=== PATIENT | female | born 1930 | race African-American/Black ===

== ENCOUNTER → 2016-07-03 | Outpatient (CLI) | payer OTHER ==
[2015-10-31 00:57] VITALS: BP 131/71
--- NOTE | 2016-07-03 16:06 | CT ---
STUDY: CT HEAD WITHOUT CONTRAST HISTORY: Dementia. COMPARISON: Head CT from February 19, 2013. TECHNIQUE: Multiple axial images of the head were obtained from the skull base to the vertex without administration of IV contrast. Automated exposure control (AEC) was utilized to adjust the MA and/o r kV. Findings: The sulci, cisterns and ventricles are age appropriate. There are a few scattered foci of low attenuation in the periventricular and subcortical white matter of both hemispheres. This is a n onspecific finding which likely represents microangiopathic change in a patient of this age. There is no evidence of acute territorial infarction, hemorrhage, mass, mass effect or midline shift . There are no abnormal extra-axial fluid collections. There is no evidence of acute osseous abnorma lity or significant soft tissue swelling. IMPRESSION: 1. No evidence of acute intracranial abnormality. 2. Mild nonspecific white matter change. 3. If there remains strong clinical concern for acute intracranial abnormality, then an MRI examinat ion should be considered for further evaluation. Reported By:
== END ==
LOC: RAD 14:38
PROVIDERS: ATTEND Internal Medicine
DX: F03.90 Unspecified dementia, unspecified severity, without behavioral disturbance, psychotic disturbance, mood disturbance, and anxiety (principal)
CPT/HCPCS: 70450

== ENCOUNTER 2016-09-28 18:21 | Observation (INO) | payer OTHER ==
[2016-09-28 18:41] VITALS: BMI 28.9
[2016-09-28 18:55] LABS: BASOPHILS % (AUTO) 0.8 % (0.2-1.0); EOSINOPHILS # (AUTO) 0.1 x10^3/uL (0.0-0.2); EOSINOPHILS % (AUTO) 1.8 % (0.9-2.9); HEMATOCRIT 33.5 % (36.0-47.0); LYMPHOCYTES # (AUTO) 1.4 X10^3/uL (1.3-2.9); LYMPHOCYTES % (AUTO) 22.3 % (21.0-51.0); MEAN CORPUSCULAR HEMOGLOBIN 25.7 pg (27.0-34.0); MEAN CORPUSCULAR HGB CONC 32.9 g/dL (33.0-35.0); MEAN PLATELET VOLUME 7.5 fL (7.4-11.0); MONOCYTES # (AUTO) 0.6 x10^3/uL (0.3-0.8); NEUTROPHILS # (AUTO) 4.2 x10^3/uL (2.2-4.8); NEUTROPHILS % (AUTO) 66.1 % (42.0-75.0); PLATELET COUNT 245 X10^3/uL (150.0-450.0); RED CELL DISTRIBUTION WIDTH 15.3 % (11.6-16.5); WHITE BLOOD COUNT 6.3 X10^3/uL (3.6-10.0)
[2016-09-28 19:15] LABS: HYPOCHROMASIA SLIGHT; PLATELET MORPHOLOGY COMMENT NORMAL (NORMAL)
[2016-09-28 19:19] LABS: BLOOD UREA NITROGEN 25 mg/dL (7-18); CARBON DIOXIDE 30.2 mmol/L (21-32); CHLORIDE 101 mmol/L (98-107); COR NA(FOR HYPERGLY) 138 mmol/L (136-145); CREATININE 1.08 mg/dL (0.55-1.02); GLUCOSE 116 mg/dL (65-99); SODIUM 138 mmol/L (136-145); TROPONIN I < 0.02 ng/mL (0-1.5); eGFR BLACK RACES > 60 (>60); eGFR NON BLACK RACES 51 (>60)
[2016-09-28] MEDS ORDERED: PEPCID 20 MG IV PREMIX* 20 MG/50 ML BAG IV ONE ×2 (19:20→19:31)
[2016-09-28 19:23] LABS: ALANINE AMINOTRANSFERASE 19 Units/L (12-78); ALBUMIN 3.3 g/dL (3.4-5.0); ALKALINE PHOSPHATASE 101 Units/L (46-116); ASPARTATE AMINO TRANSFERASE 17 Units/L (15-37); CKMB % 1.2 % (<4); COR CA(FOR HYPOALB) 9.6 mg/dL (8.5-10.1); CREATINE KINASE 109 Units/L (26-192); CREATINE KINASE MB 1.3 ng/mL (0-4.0); MAGNESIUM 1.6 mg/dL (1.7-2.9); TOTAL PROTEIN 7.1 g/dL (6.4-8.2)
[2016-09-28 19:24] LABS: BILIRUBIN,URINE NEGATIVE (NEGATIVE); BLOOD/HEMOGLOBIN,URINE 2+ (NEGATIVE); GLUCOSE, URINE NEGATIVE (NEGATIVE); KETONES,URINE NEGATIVE (NEGATIVE); LEUKOCYTE ESTERASE ,URINE 1+ (NEGATIVE); NITRITES,URINE NEGATIVE (NEGATIVE); PROTEIN,URINE 1+ (NEGATIVE); UROBILINOGEN,URINE NORMAL (NORMAL)
[2016-09-28] MEDS ORDERED: ASPIRIN 81 MG CHEWTAB PO ONE (19:24)
[2016-09-28] MEDS ORDERED: MORPHINE SULFATE INJ 4 MG IVP ONE (19:24)
[2016-09-28] MEDS ORDERED: ZOFRAN INJ 4 MG VIAL IVP ONE (19:24)
[2016-09-28 19:31] LABS: D DIMER 906 ng/mL (0-400)
[2016-09-28] MEDS ORDERED: ZOFRAN INJ 4 MG VIAL ONE (19:31)
[2016-09-28] MEDS ORDERED: ASPIRIN 81 MG CHEWTAB ONE (19:32)
[2016-09-28] MEDS ORDERED: MORPHINE SULFATE INJ 4 MG ONE (19:32)
[2016-09-28 19:37] LABS: APPEARANCE,URINE CLEAR (CLEAR); COLOR,URINE YELLOW (YELLOW)
[2016-09-28 19:48] LABS: RBC,URINE RARE /HPF (NEGATIVE); SQUAMOUS EPITHELIAL CELL,UR RARE /HPF (NEGATIVE)
[2016-09-28 19:49] LABS: AMORPHOUS SEDIMENT,UR TRACE /HPF (NEGATIVE); BACTERIA,URINE NEGATIVE /HPF (NEGATIVE)
--- NOTE | 2016-09-28 20:03 | RAD ---
HISTORY: Chest pain Study: Single view chest. Comparison: None. Findings: The trachea is midline. There is abnormal thickening of the right paratracheal stripe which can be f ollowed up with outpatient chest CT imaging with IV contrast for assurance. The cardiac silhouette i s enlarged with a tortuous thoracic aorta. Chronic lung changes are observed. The lungs are clear w ithout focal infiltrate or effusion. The bony thorax is unremarkable. IMPRESSION: The trachea is midline. There is abnormal thickening of the right paratracheal stripe which can be f ollowed up with outpatient chest CT imaging with IV contrast for assurance. The cardiac silhouette i s enlarged with a tortuous thoracic aorta. Chronic lung changes are observed. The lungs are clear w ithout focal infiltrate or effusion. The bony thorax is unremarkable. Reported By:
[2016-09-28] MEDS: NITROSTAT SL PRN (20:17)
--- NOTE | 2016-09-28 20:24 | DR.CP ---
HPI - Time Seen Time seen: 19:50 - PCP Primary Care Physician: ness - HPI Comment HPI Comment: SUDDEN ONSET OF PRECORDIA CHEST PAIN GOING INTO EPIGASTRIC AREA. ANTACID MEDS DID NOT HELP. HISTORY CAG WITH PREVIOUS MN. TOOK ASPIRIN BEFORE COMING. - Complaint Chief Complaint Doctor Comments: CHEST PAIN. Chief Complaint:: patient stated she was sitting at home reading a news paper when her left chest pain started. Self Treatment fo Chief Complaint: she took a asprin 81 mg at home - Reviewed Nurses Notes Review: Yes - Source History Provided: Patient - Mode of Arrival Mode of Arrival: Ambulatory - Timing Onset of Chief Complaint: 09/28/16 Came on: Suddenly Pain: Present Now - Duration Duration: Constant Duration: Hours - Location Location of Chest Pain: Left, Chest Chest Pain Radiation Location: Abdomen - Context Onset: At rest Cardiac Risk Factors: Family History, HTN, Diabetes, Other ([place] I9N THE PAST) PE Risk Factors: None Prehospital Care: ASA - Quality Quality: Heavy - Severity Severity: Moderate - Modifying Factors Worsens: Nothing Impoves: Nothing - Associated Signs and Symptoms Associated Signs and Symptoms: Shortness of Breath PMH - PMH Past Medical History: Yes Past Medical History: Angina, Anxiety, Arthritis, Diabetes, GERD, Gout, Hypertension, Hyperthyroidism, [place] Past Surgical History: Yes Surgical History: Bowel Resection, 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, 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 - Family History History of Family Medical Conditions: Yes Family Medical History: Diabetes Mellitus, [place], Coronary Artery Disease, Heart Failure, Sudden Cardiac , Hypertension - Social History Does patient currently use any type of tobacco product: No Have you used tobacco products in the last 12 months: No Type of Tobacco Use: None Does any household member use tobacco: No Alcohol Use: None Do you use any recreational Drugs:: No Lives With: Family Lives Where: Home - infectious screening In the last 2 months have you had wt loss of >10#?: NO Have you had fever, night sweats or hemotysis?: No Have you traveled outside the country in the last 6 months?: No Isolation: Standard ROS - Review of Systems Constitutional: Weakness, Fatigue. negative: Chills, Fever Eyes: No Symptoms Reported. negative: Eye Pain, Discharge ENTM: No Symptoms Reported. negative: Ear Pain, Nose Discharge, Nose Congestion , Throat Pain Respiratoy: Short of Breath. negative: Productive Cough, Non-Productive Cough, Wheezing, Hemoptysis Cardiovascular: Chest Pain Gastrointestinal/Abdominal: No Symptoms Reported Genitourinary: negative: Dysuria, Hematuria Neurological: Weakness Musculoskeletal: Muscle Pain Integumentary: No Symptoms Reported Hematologic/Lymphatic: Easy Bruising Endocrine: No Symptoms Reported All Other Systems: Reviewed and Negative PE - Vitals Vitals: Temperature 98.6 F Pulse Rate 64 Respiratory Rate 18 Blood Pressure [Right Arm] 138/77 Blood Pressure 194/86 O2 Sat by Pulse Oximetry 100 - General Limitations: No Limitations General Appearance: Alert - Head Head Exam: Normal Inspection - Eyes Eye exam: Normal Appearance - ENT ENT Exam: Normal Oropharynx, Normal External Ear Exam, TM's Normal Bilaterally - Chest Chest Inspection: Symmetric Chest Wall Rise - Respiratory Respiratory Exam: Respiratory Distress (ON EXERTION.) Respiratory Exam: Bilateral Wheezing, Bilateral Rhonchi, Lower Wheezing, Lower Rhonchi, Lower Decreased Breath Sounds - Cardiovascular Cardiovascular Exam: Regular Rate, Normal Rhythm, Normal Heart Sounds Pulse: Normal, Radial, Femoral Edema: Normal - Abdominal Exam Abdominal Exam: Normal Bowel Sounds, Soft. negative: Tenderness - Extremities Extremities Exam: Edema, Joint Swelling - Back Back Exam: Normal Inspection - Neurologic Neurological Exam: Alert, Oriented X3, CN II-XII Intact, Reflexes Normal. negative: Normal Gait (WALK WITH CANE), Motor Sensory Deficit - Psychiatric Psychiatric Exam: Normal Affect, Normal Mood - Skin Skin Exam: Normal Color MDM - Additional Information Additional Information Obtained From: Family - Differential Diagnosis Differential Diagnosis: Angina, Chest Wall Pain, Costochondritis, Esophageal Reflux/Spasm, Gastritis, Myocardial Infarction, Pericarditis, Pleuritis, Pancreatitis, Pneumonia, Pneumothorax, Pulmonary Embolus Course - Treatment Treatment: SEE ORDERS. - Reevaluation 1st: Improved (PAIN IMPROVE WITH MORPHIN.) - Consultation Consultation Comments: DISCUSS PATIENT WITH DR. GUTIERREZ. HE WILL ADMIT PATIENT. - Education/Counseling Education/Counseling: Patient, Family, Education Educated On: Treatment, Diagnosis ROR - Labs Reviewed Laboratory Results Reviewed?: Yes Result Diagrams: 09/28/16 18:44 09/28/16 18:44 Laboratory: WBC 6.3 X10^3/uL (3.6-10.0) 09/28/16 18:44 RBC 4.30 X10^6/uL (3.5-5.4) 09/28/16 18:44 Hgb 11.0 g/dL (12.0-16.0) L 09/28/16 18:44 Hct 33.5 % (36.0-47.0) L 09/28/16 18:44 MCV 78.0 fL (80.0-100.0) L 09/28/16 18:44 MCH 25.7 pg (27.0-34.0) L 09/28/16 18:44 MCHC 32.9 g/dL (33.0-35.0) L 09/28/16 18:44 RDW 15.3 % (11.6-16.5) 09/28/16 18:44 Plt Count 245 X10^3/uL (150.0-450.0) 09/28/16 18:44 Plt Count Comment Adequate (ADEQUATE) 09/28/16 18:44 MPV 7.5 fL (7.4-11.0) 09/28/16 18:44 Neut % 66.1 % (42.0-75.0) 09/28/16 18:44 Lymph % 22.3 % (21.0-51.0) 09/28/16 18:44 [place] % 9.0 % (0.0-13.0) 09/28/16 18:44 Eos % 1.8 % (0.9-2.9) 09/28/16 18:44 Baso % 0.8 % (0.2-1.0) 09/28/16 18:44 Neut # 4.2 x10^3/uL (2.2-4.8) 09/28/16 18:44 Lymph # 1.4 X10^3/uL (1.3-2.9) 09/28/16 18:44 [place] # 0.6 x10^3/uL (0.3-0.8) 09/28/16 18:44 Eos # 0.1 x10^3/uL (0.0-0.2) 09/28/16 18:44 Baso # 0.0 X10^3/uL (0.0-0.1) 09/28/16 18:44 Absolute Nucleated RBC 0.0 /100WBC 09/28/16 18:44 Plt Morphology Comment Normal (NORMAL) 09/28/16 18:44 RBC Morphology Abnormal (NORMAL) A 09/28/16 18:44 Hypochromasia Slight A 09/28/16 18:44 INR Target Range - 09/28/16 18:44 INR 1.00 (0.8-1.3) 09/28/16 18:44 PTT 26.7 SECONDS (22.9-36.5) 09/28/16 18:44 PTT Comment - 09/28/16 18:44 D-Dimer 906 ng/mL (0-400) H* 09/28/16 18:44 Sodium 138 mmol/L (136-145) 09/28/16 18:44 Corrected Sodium 138 mmol/L (136-145) 09/28/16 18:44 Potassium 3.6 mmol/L (3.5-5.1) 09/28/16 18:44 Chloride 101 mmol/L (98-107) 09/28/16 18:44 Carbon Dioxide 30.2 mmol/L (21-32) 09/28/16 18:44 BUN 25 mg/dL (7-18) H 09/28/16 18:44 Creatinine 1.08 mg/dL (0.55-1.02) H 09/28/16 18:44 Est GFR (MDRD) Af Amer > 60 (>60) 09/28/16 18:44 Est GFR (MDRD) Non-Af 51 (>60) L 09/28/16 18:44 Glucose 116 mg/dL (65-99) H 09/28/16 18:44 Calcium 9.0 mg/dL (8.5-10.1) 09/28/16 18:44 Corrected Calcium 9.6 mg/dL (8.5-10.1) 09/28/16 18:44 Magnesium 1.6 mg/dL (1.7-2.9) L 09/28/16 18:44 Total Bilirubin 0.30 mg/dL (0.2-1.0) 09/28/16 18:44 AST 17 Units/L (15-37) 09/28/16 18:44 ALT 19 Units/L (12-78) 09/28/16 18:44 Alkaline Phosphatase 101 Units/L (46-116) 09/28/16 18:44 Creatine Kinase 92 Units/L (26-192) 09/29/16 00:55 CK-MB (CK-2) 1.1 ng/mL (0-4.0) 09/29/16 00:55 CK/CKMB % Calc 1.2 % (<4) 09/29/16 00:55 Troponin I 0.02 ng/mL (0-1.5) 09/29/16 00:55 Total Protein 7.1 g/dL (6.4-8.2) 09/28/16 18:44 Albumin 3.3 g/dL (3.4-5.0) L 09/28/16 18:44 Globulin 3.8 g/dL (2.5-4.5) 09/28/16 18:44 Albumin/Globulin Ratio 0.9 Ratio (1.1-2.1) L 09/28/16 18:44 Specimen Type Clean catch urine 09/28/16 19:19 Urine Color Yellow (YELLOW) 09/28/16 19:19 Urine Appearance Clear (CLEAR) 09/28/16 19:19 Urine pH 7.0 (5.0 - 8.0) 09/28/16 19:19 Ur Specific [place] 1.005 (1.000-1.030) 09/28/16 19:19 Urine Protein 1+ (NEGATIVE) 09/28/16 19:19 Urine Glucose (UA) Negative (NEGATIVE) 09/28/16 19:19 Urine Ketones Negative (NEGATIVE) 09/28/16 19:19 Urine Occult Blood 2+ (NEGATIVE) 09/28/16 19:19 Urine Nitrite Negative (NEGATIVE) 09/28/16 19:19 Urine Bilirubin Negative (NEGATIVE) 09/28/16 19:19 Urine Urobilinogen Normal (NORMAL) 09/28/16 19:19 Ur Leukocyte Esterase 1+ (NEGATIVE) 09/28/16 19:19 Urine RBC Rare /HPF (NEGATIVE) 09/28/16 19:19 Urine WBC Rare /HPF (NEGATIVE) 09/28/16 19:19 Ur Squamous Epith Cells Rare /HPF (NEGATIVE) 09/28/16 19:19 Amorphous Sediment Trace /HPF (NEGATIVE) 09/28/16 19:19 Urine Bacteria Negative /HPF (NEGATIVE) 09/28/16 19:19 Ur Culture Indicated? No/not indicated 09/28/16 19:19 - XRAY XRAY Interpreted by: Radiologist XRAY Findings: REPORT DISCUSS WITH PATIENTAND FAMILY. - EKG Rhythm: NSR (EKG NOTED.) - Diagnosis Discharge Problem: Elevated d-dimer Chest pain Qualifiers: Chest pain type: precordial pain Qualified Code(s): R07.2 - Precordial pain Hypertension Qualifiers: Hypertension type: essential hypertension Qualified Code(s): I10 - Essential ( primary) hypertension - Discharge Plan Disposition: ADMITTED INPATIENT Condition: Stable - Follow ups/Referrals - Instructions
[2016-09-28] MEDS ORDERED: NIFEDIPINE CAP 10 MG PO ONE (20:50)
[2016-09-28] MEDS ORDERED: NIFEDIPINE CAP 10 MG ONE (21:02)
[2016-09-28] MEDS: NS 1000 ML 1,000 ML IV SCH (21:10)
[2016-09-29 01:31] LABS: CKMB % 1.2 % (<4); CREATINE KINASE MB 1.1 ng/mL (0-4.0); TROPONIN I 0.02 ng/mL (0-1.5)
[2016-09-29 05:06] LABS: BASOPHILS % (AUTO) 0.7 % (0.2-1.0); EOSINOPHILS # (AUTO) 0.2 x10^3/uL (0.0-0.2); EOSINOPHILS % (AUTO) 3.3 % (0.9-2.9); HEMATOCRIT 32.7 % (36.0-47.0); HEMOGLOBIN 10.7 g/dL (12.0-16.0); LYMPHOCYTES # (AUTO) 1.8 X10^3/uL (1.3-2.9); LYMPHOCYTES % (AUTO) 28.3 % (21.0-51.0); MEAN CORPUSCULAR HEMOGLOBIN 25.8 pg (27.0-34.0); MEAN CORPUSCULAR HGB CONC 32.9 g/dL (33.0-35.0); MEAN CORPUSCULAR VOLUME 78.5 fL (80.0-100.0); MEAN PLATELET VOLUME 7.9 fL (7.4-11.0); MONOCYTES # (AUTO) 0.6 x10^3/uL (0.3-0.8); NEUTROPHILS # (AUTO) 3.7 x10^3/uL (2.2-4.8); NEUTROPHILS % (AUTO) 58.7 % (42.0-75.0); PLATELET COUNT 226 X10^3/uL (150.0-450.0); RED BLOOD COUNT 4.16 X10^6/uL (3.5-5.4); RED CELL DISTRIBUTION WIDTH 15.4 % (11.6-16.5); WHITE BLOOD COUNT 6.2 X10^3/uL (3.6-10.0)
[2016-09-29 05:20] LABS: CHOL/HDL RATIO 2.2 (0.0-5.0)
[2016-09-29 05:23] LABS: ALANINE AMINOTRANSFERASE 17 Units/L (12-78); ALBUMIN 3.2 g/dL (3.4-5.0); ALKALINE PHOSPHATASE 85 Units/L (46-116); ASPARTATE AMINO TRANSFERASE 18 Units/L (15-37); BLOOD UREA NITROGEN 20 mg/dL (7-18); CALCIUM 8.6 mg/dL (8.5-10.1); CARBON DIOXIDE 30.3 mmol/L (21-32); CHLORIDE 105 mmol/L (98-107); COR CA(FOR HYPOALB) 9.2 mg/dL (8.5-10.1); COR NA(FOR HYPERGLY) 143 mmol/L (136-145); CREATININE 0.94 mg/dL (0.55-1.02); GLUCOSE 122 mg/dL (65-99); SODIUM 142 mmol/L (136-145); TOTAL PROTEIN 6.7 g/dL (6.4-8.2); eGFR BLACK RACES > 60 (>60); eGFR NON BLACK RACES > 60 (>60)
[2016-09-29 06:08] LABS: HYPOCHROMASIA SLIGHT; PLATELET MORPHOLOGY COMMENT NORMAL (NORMAL)
[2016-09-29] MEDS ORDERED: K-LYTE EFFERVESCENT PO PRN (06:27)
[2016-09-29] MEDS ORDERED: K-RIDER 10 MEQ/NS 100 ML 10 MEQ/100 ML BAG IV PRN (06:27)
[2016-09-29] MEDS ORDERED: K-DUR TAB 20 MEQ PO PRN (06:27)
[2016-09-29] MEDS ORDERED: POTASSIUM CHLORIDE LIQ 20 MEQ UDC PO PRN (06:27)
[2016-09-29 08:11] LABS: CKMB % 1.2 % (<4); CREATINE KINASE 89 Units/L (26-192); CREATINE KINASE MB 1.1 ng/mL (0-4.0); TROPONIN I < 0.02 ng/mL (0-1.5)
--- NOTE | 2016-09-29 11:59 | DR.H&P ---
H&P - History & Physical for Day of: H&P Date: 09/28/16 - Chief Complaint Chief Complaint: CHEST PAIN. - Allergies Allergies/Adverse Reactions: Allergies Allergy/AdvReac Type Severity Reaction Status Date / Time codeine Allergy Verified 09/29/16 03:46 Penicillins Allergy Verified 09/29/16 03:46 shellfish derived Allergy Verified 09/29/16 03:46 - History of Present Illness History of Present Illness: IS AN 86 YEAR OLD PATIENT OF OURS WHO PRESENTED TO THE EMERGENCY ROOM WITH SUDDEN ONSET CHEST. 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 SHE STATES THAT PAIN IS ALSO INTO EPIGASTRIC AREA. PATIENT STATED THAT SHE THOUGHT IT MAY BE ACID, SO SHE TOOK ANTACIDS AND ASPIRIN, BUT DID NOT GET ANY RELIEF. ON ARRIVAL TO ER, VITALS WERE 97.8, 56, 18, 92%, 143/67. LABS, EKG, AND CHEST XRAY WAS OBTAINED. LABS REPORT CBC WNL EXCEPT HGB 11.0, HCT 33.5. CMP WNL EXCEPT BUN 25, CREATININE 1.08. GLUCOSE 116, MAGNESIUM 1.6, ALBUMIN 3.3. CARDIAC PROFILE WNL. D -DIMER 906. CHEST XRAY REPORTED LUNGS CLEAR WITHOUT FOCAL INFILTRATE OR EFFUSION. EKG NORMAL . DUE TO PATIENTS CARDIAC HISTORY, SHE WAS ADMITTED FOR FURTHER TREATMENT AND EVALUATION. A VQ SCAN WAS ORDERED RATHER THAN A CT WITH CONTRAST DUE TO PATIENTS SHELLFISH ALLERGY. WE PLANNED TO RECHECK LABS, CARDIAC PROFILES, AND EKGS AND TO FOLLOW UP WITH PATIENT IN AM. 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 denies: See HPI, Pain, Vision Change, Conjunctivae Inflammation, Eyelid Inflammation, Redness, Other ENT: No Symptoms Reported. denies: See HPI, Ear Pain, Ear Discharge, Nose Pain , Nose Discharge, Nose Congestion, Mouth Pain, Mouth Swelling, Throat Pain, Throat Swelling, Other Respiratory: Shortness of Breath. denies: No Symptoms Reported, See HPI, Cough , Dry, Hemoptysis, SOB with Excertion, Pleuritic Pain, Sputum, Wheezing, Other Cardiovascular: Chest Pain, See HPI. denies: No Symptoms Reported, Palpitations , Orthopnea, Paroxysmal Noc. Dyspnea, Edema, Light Headedness, Other Genitourinary: No Symptoms Reported. denies: See HPI, Dysuria, Frequency, Incontinence, Hematuria, Retention, Other Musculoskeletal: No Symptoms Reported. denies: See HPI, Shoulder Pain, Arm Pain , Back Pain, Hand Pain, Leg Pain, Foot Pain, Neck Pain, Other Skin: No Symptoms Reported. denies: See HPI, Rash, Lesions, Jaundice, Bruising , Wound, Ecchymosis, Other Neurological: No Symptoms Reported. denies: See HPI, Weakness, Numbness, Incoordination, Change in Speech, Confusion, Seizures, Other - Physical Exam Vital Signs: Temperature 97.8 F Pulse Rate [Right Brachial] 56 Respiratory Rate 18 Blood Pressure [Right Arm] 143/67 O2 Sat by Pulse Oximetry 92 Oriented: Normal. negative: Time, Person, Place, Not Oriented, Unable to test, Other Eyes: Normal. negative: Blurred Vision, Diplopia, Discharge, Pain, Redness, Photophobia, Other Ear: Normal. negative: Right, Left, Swelling, Ecchymosis, Hemotypanum, Abrasion , Laceration Nose: Normal. negative: Injected, Discharge, Blood, Other Throat: Normal. negative: Tonsillar Hypertrophy, Red, Exudate, Dry, Other Respiratory: Clear Throughout. negative: Diminished Throughout, Rhonchi Throughout, Rales Throughout, Wheezes Throughout, RUL Clear, RML Clear, RLL Clear, BABITA Clear, LML Clear, LLL Clear, RUL Diminished, RML Diminished, RLL Diminished, BABITA Diminished, LML Diminished, LLL Diminished, RUL Absent, RML Absent, RLL Absent, BABITA Absent, LML Absent, LLL Absent, RUL Rhonchi, RML Rhonchi , RLL Rhonchi, BABITA Rhonchi, LML Rhonchi, LLL Rhonchi, RUL Insp. Wheeze, RML Insp. Wheeze, RLL Insp. Wheeze, BABITA Insp.Wheeze, LML Insp.Wheeze, LLL Insp.Wheeze, RUL Exp. Wheeze, RML Exp. Wheeze, RLL Exp. Wheeze, BABITA Exp. Wheeze , LML Exp. Wheeze, LLL Exp. Wheeze, RUL Rales, RML Rales, RLL Rales, BABITA Rales, LML Rales, LLL Rales, RUL Rub, RML Rub, RLL Rub, BABITA Rub, LML Rub, LLL Rub, RUL Squeak, RML Squeak, RLL Squeak, BABITA Squeak, LML Squeak, LLL Squeak Cardiovascular: Normal. negative: Tachycardia, Bradycardia, Irregular, S3, S4, Systolic, Diastolic, Murmur, Edema, Other : Normal. negative: Dysuria, Hematuria, Frequency, Discharge, Testicular Pain , Bleeding, , Other Auscultation: Bowel Sounds: Normal. negative: Bruit, Absent, Increased, Decreased, High Pitched, Other Palpation: Normal. negative: Spleen Enlarged, Liver Enlarged, Mass Pulsatile, Other Tenderness: Epigastric Skin: Normal. negative: Decreased Turgur, Rash, Papular, Macular, Maculopapular , Vesicular, Pustular, Petechial, Red, Tender, Hot, Diaphoresis, Wound, Bruising , Ecchymosis, Other Musculoskeletal: Normal. negative: Right, Left, Shoulder, Clavicle, Arm, Elbow , Forearm, Wrist, Hand, Hip, Thigh, Knee, Leg, Ankle, Foot, Back:Thoracic, Back: Lumbar, Back:Midline, Back:Paraspinous, Pelvis, Swelling, Tender, Deformity, Pulse Deficit, Motor Deficit, Sensory Deficit, Instability, Crepitance Psychiatric: Normal. negative: Anxiety, Depression, Agitation, Other Mood Description: Calm. negative: Angry, Apathetic, Depressed, Fearful, Flat, Happy, Hostile, Sad, Suspicious, Withdrawn, Anxious, Appropriate, Labile Affect: Normal Speech Pattern: Clear - Assessment/Plan (1) Chest pain Qualifiers: Chest pain type: precordial pain Ischemic chest pain type: I Qualified Code(s): R07.2 - Precordial pain Status: Acute Plan: CHECK CARDIAC PROFILE, EKG, CHEST XRAY, NITROSTAT, CONTINUE TO MONITOR (2) Elevated d-dimer Status: Acute Plan: CHECK VQ SCAN, CONTINUE TO MONITOR
[2016-09-29] MEDS ORDERED: XANAX PO PRN (12:02)
--- NOTE | 2016-09-29 12:06 | PCM.PROG ---
Progress Note - Progress Note for Day of Date: 09/29/16 - Subjective Subjective: WAS ADMITTED LAST NIGHT FOR CHEST PAIN. SHE IS SITTING UP IN BED ON MORNING ROUNDS. FAMILY IS AT BEDSIDE. SHE IS WITH COMPLAINTS OF SHORTNESS OF BREATH BUT DENIES ANY CURRENT CHEST PAIN. LUNGS ARE CLEAR ON AUSCULTATION. BOWEL SOUNDS NORMAL IN ALL QUADRANTS. VITALS THIS AM ARE 97.8, 56 , 18, 92%, 143/67. CBC WNL EXCEPT HGB 10.7, HCT 32.7. CMP WNL EXCEPT POTASSIUM 3.1, BUN 20, CREATININE 0.94, GLUCOSE 122, ALBUMIN 3.2, HDL CHOLESTEROL 84, MAGNESIUM 1.5. CARDIAC PROFILES AND EKG WNL. WE WILL ORDER MAGNESIUM SULFATE 2GM IV X 1, CHECK BILATERAL VENOUS DOPPLER DUE TO ELEVATED D-DIMER, RECHECK LABS , CHECK CHEST XRAY AND FOLLOW UP WITH PATIENT IN AM. - Past Medical Family Social History Past Med/Fam/Surg Hx: No changes since H&P Allergies: Allergies codeine Allergy (Verified 09/29/16 03:46) Penicillins Allergy (Verified 09/29/16 03:46) shellfish derived Allergy (Verified 09/29/16 03:46) - Review of Systems ROS: No change since H&P - Vital Signs and I&O's Vital Signs: Temperature 97.8 F Pulse Rate [Right Brachial] 56 Respiratory Rate 18 Blood Pressure [Right Arm] 143/67 O2 Sat by Pulse Oximetry 92 Intake and Output: Intake & Output 09/27/16 09/28/16 09/29/16 09/30/16 11:59 11:59 11:59 11:59 Intake Total 235 Balance 235 - Physical Exam Oriented: Normal. negative: Time, Person, Place, Not Oriented, Unable to test, Other Eyes: Normal. negative: Blurred Vision, Diplopia, Discharge, Pain, Redness, Photophobia, Other Ear: Normal. negative: Right, Left, Swelling, Ecchymosis, Hemotypanum, Abrasion , Laceration Nose: Normal. negative: Injected, Discharge, Blood, Other Throat: Normal. negative: Tonsillar Hypertrophy, Red, Exudate, Dry, Other Respiratory: Normal Cardiovascular: Normal. negative: Tachycardia, Bradycardia, Irregular, S3, S4, Systolic, Diastolic, Murmur, Edema, Other : Normal. negative: Dysuria, Hematuria, Frequency, Discharge, Testicular Pain , Bleeding, , Other Auscultation: Bowel Sounds: Normal. negative: Bruit, Absent, Increased, Decreased, High Pitched, Other Tenderness: Normal. negative: Diffuse, RUQ, RLQ, LUQ, LLQ, Epigastric, Periumbilical, Suprapubic, Mild, Moderate, Severe, Rebound, Guarding, Rigidity, Other Skin: Normal. negative: Decreased Turgur, Rash, Papular, Macular, Maculopapular , Vesicular, Pustular, Petechial, Red, Tender, Hot, Diaphoresis, Wound, Bruising , Ecchymosis, Other Musculoskeletal: Normal. negative: Right, Left, Shoulder, Clavicle, Arm, Elbow , Forearm, Wrist, Hand, Hip, Thigh, Knee, Leg, Ankle, Foot, Back:Thoracic, Back: Lumbar, Back:Midline, Back:Paraspinous, Pelvis, Swelling, Tender, Deformity, Pulse Deficit, Motor Deficit, Sensory Deficit, Instability, Crepitance Psychiatric: Normal. negative: Anxiety, Depression, Agitation, Other Mood Description: Calm. negative: Angry, Apathetic, Depressed, Fearful, Flat, Happy, Hostile, Sad, Suspicious, Withdrawn, Anxious, Appropriate, Labile Affect: Normal Speech Pattern: Clear - Laboratory and Diagnostics Result Diagrams: 09/29/16 03:25 09/29/16 03:25 Labs: Laboratory WBC 6.2 X10^3/uL (3.6-10.0) 09/29/16 03:25 RBC 4.16 X10^6/uL (3.5-5.4) 09/29/16 03:25 Hgb 10.7 g/dL (12.0-16.0) L 09/29/16 03:25 Hct 32.7 % (36.0-47.0) L 09/29/16 03:25 MCV 78.5 fL (80.0-100.0) L 09/29/16 03:25 MCH 25.8 pg (27.0-34.0) L 09/29/16 03:25 MCHC 32.9 g/dL (33.0-35.0) L 09/29/16 03:25 RDW 15.4 % (11.6-16.5) 09/29/16 03:25 Plt Count 226 X10^3/uL (150.0-450.0) 09/29/16 03:25 Plt Count Comment Adequate (ADEQUATE) 09/29/16 03:25 MPV 7.9 fL (7.4-11.0) 09/29/16 03:25 Neut % 58.7 % (42.0-75.0) 09/29/16 03:25 Lymph % 28.3 % (21.0-51.0) 09/29/16 03:25 [place] % 9.0 % (0.0-13.0) 09/29/16 03:25 Eos % 3.3 % (0.9-2.9) H 09/29/16 03:25 Baso % 0.7 % (0.2-1.0) 09/29/16 03:25 Neut # 3.7 x10^3/uL (2.2-4.8) 09/29/16 03:25 Lymph # 1.8 X10^3/uL (1.3-2.9) 09/29/16 03:25 [place] # 0.6 x10^3/uL (0.3-0.8) 09/29/16 03:25 Eos # 0.2 x10^3/uL (0.0-0.2) 09/29/16 03:25 Baso # 0.0 X10^3/uL (0.0-0.1) 09/29/16 03:25 Absolute Nucleated RBC 0.0 /100WBC 09/29/16 03:25 Plt Morphology Comment Normal (NORMAL) 09/29/16 03:25 RBC Morphology Abnormal (NORMAL) A 09/29/16 03:25 Hypochromasia Slight A 09/29/16 03:25 INR Target Range - 09/28/16 18:44 INR 1.00 (0.8-1.3) 09/28/16 18:44 PTT 26.7 SECONDS (22.9-36.5) 09/28/16 18:44 PTT Comment - 09/28/16 18:44 D-Dimer 906 ng/mL (0-400) H* 09/28/16 18:44 Sodium 142 mmol/L (136-145) 09/29/16 03:25 Corrected Sodium 143 mmol/L (136-145) 09/29/16 03:25 Potassium 3.1 mmol/L (3.5-5.1) L 09/29/16 03:25 Chloride 105 mmol/L (98-107) 09/29/16 03:25 Carbon Dioxide 30.3 mmol/L (21-32) 09/29/16 03:25 BUN 20 mg/dL (7-18) H 09/29/16 03:25 Creatinine 0.94 mg/dL (0.55-1.02) 09/29/16 03:25 Est GFR (MDRD) Af Amer > 60 (>60) 09/29/16 03:25 Est GFR (MDRD) Non-Af > 60 (>60) 09/29/16 03:25 Glucose 122 mg/dL (65-99) H 09/29/16 03:25 Calcium 8.6 mg/dL (8.5-10.1) 09/29/16 03:25 Corrected Calcium 9.2 mg/dL (8.5-10.1) 09/29/16 03:25 Magnesium 1.5 mg/dL (1.7-2.9) L 09/29/16 07:25 Total Bilirubin 0.40 mg/dL (0.2-1.0) 09/29/16 03:25 AST 18 Units/L (15-37) 09/29/16 03:25 ALT 17 Units/L (12-78) 09/29/16 03:25 Alkaline Phosphatase 85 Units/L (46-116) 09/29/16 03:25 Creatine Kinase 89 Units/L (26-192) 09/29/16 07:25 CK-MB (CK-2) 1.1 ng/mL (0-4.0) 09/29/16 07:25 CK/CKMB % Calc 1.2 % (<4) 09/29/16 07:25 Troponin I < 0.02 ng/mL (0-1.5) 09/29/16 07:25 Total Protein 6.7 g/dL (6.4-8.2) 09/29/16 03:25 Albumin 3.2 g/dL (3.4-5.0) L 09/29/16 03:25 Globulin 3.5 g/dL (2.5-4.5) 09/29/16 03:25 Albumin/Globulin Ratio 0.9 Ratio (1.1-2.1) L 09/29/16 03:25 Triglycerides 45 mg/dL (0-150) 09/29/16 03:25 Cholesterol 181 mg/dL (0-200) 09/29/16 03:25 LDL Cholesterol, Calc 88 mg/dL (0-100) 09/29/16 03:25 HDL Cholesterol 84 mg/dL (40-60) H 09/29/16 03:25 Cholesterol/HDL Ratio 2.2 (0.0-5.0) 09/29/16 03:25 Specimen Type Clean catch urine 09/28/16 19:19 Urine Color Yellow (YELLOW) 09/28/16 19:19 Urine Appearance Clear (CLEAR) 09/28/16 19:19 Urine pH 7.0 (5.0 - 8.0) 09/28/16 19:19 Ur Specific [place] 1.005 (1.000-1.030) 09/28/16 19:19 Urine Protein 1+ (NEGATIVE) 09/28/16 19:19 Urine Glucose (UA) Negative (NEGATIVE) 09/28/16 19:19 Urine Ketones Negative (NEGATIVE) 09/28/16 19:19 Urine Occult Blood 2+ (NEGATIVE) 09/28/16 19:19 Urine Nitrite Negative (NEGATIVE) 09/28/16 19:19 Urine Bilirubin Negative (NEGATIVE) 09/28/16 19:19 Urine Urobilinogen Normal (NORMAL) 09/28/16 19:19 Ur Leukocyte Esterase 1+ (NEGATIVE) 09/28/16 19:19 Urine RBC Rare /HPF (NEGATIVE) 09/28/16 19:19 Urine WBC Rare /HPF (NEGATIVE) 09/28/16 19:19 Ur Squamous Epith Cells Rare /HPF (NEGATIVE) 09/28/16 19:19 Amorphous Sediment Trace /HPF (NEGATIVE) 09/28/16 19:19 Urine Bacteria Negative /HPF (NEGATIVE) 09/28/16 19:19 Ur Culture Indicated? No/not indicated 09/28/16 19:19 - Plan (1) Chest pain Status: Acute Qualifiers: Chest pain type: precordial pain Ischemic chest pain type: I Qualified Code(s): R07.2 - Precordial pain Plan: CHECK CARDIAC PROFILE, EKG, CHEST XRAY, NITROSTAT, CONTINUE TO MONITOR (2) Elevated d-dimer Status: Acute Plan: CHECK VQ SCAN, BILATERAL VENOUS DOPPLER, CONTINUE TO MONITOR (3) Hypertension Status: Chronic Qualifiers: Hypertension type: essential hypertension Qualified Code(s): I10 - Essential (primary) hypertension Plan: CONTINUE LOSARTAN/HCTZ, CONTINUE VERAPAMIL, CONTINUE TO MONITOR (4) Hyperthyroidism Status: Chronic Plan: CONTINUE METHIMAZOLE, CONTINUE TO MONITOR (5) Diabetes mellitus Status: Chronic Qualifiers: Diabetes mellitus type: type 2 Diabetes mellitus complication status: without complication Diabetes mellitus complication detail: D Diabetic retinopathy severity: D Proliferative retinopathy type: P Diabetes mellitus macular edema: D Diabetes mellitus veterans rehabilitation counselor insulin use: unspecified veterans rehabilitation counselor insulin use status Laterality: L Chronic kidney disease stage: C Qualified Code(s): E11.9 - Type 2 diabetes mellitus without complications Plan: CONTINUE GLIMEPIRIDE, OTBS ACHS, CONTINUE TO MONITOR
[2016-09-29] MEDS ORDERED: HYDROCHLOROTHIAZIDE PO SCH (12:15)
[2016-09-29] MEDS ORDERED: LOSARTAN POTASSIUM PO SCH (12:15)
[2016-09-29] MEDS ORDERED: TYLENOL 325 MG TAB PO PRN (12:27)
[2016-09-29] MEDS ORDERED: TAPAZOLE ONE ×2 (12:58→21:04)
[2016-09-29] MEDS: NITROSTAT SL PRN (13:01)
[2016-09-29] MEDS: CALAN SR 240 MG PO SCH ×2 (13:04→21:18)
[2016-09-29] MEDS: TAPAZOLE PO SCH ×2 (13:04→21:18)
[2016-09-29 13:37] LABS: CKMB % 1.1 % (<4); CREATINE KINASE 91 Units/L (26-192); CREATINE KINASE MB < 1.0 ng/mL (0-4.0); TROPONIN I < 0.02 ng/mL (0-1.5)
--- NOTE | 2016-09-29 14:45 | VAS ---
HISTORY: Elevated D-dimer Study: Bilateral lower extremity venous Doppler Comparison: None TECHNIQUE: Multiple paulosn scale and color flow Doppler images of the deep venous system were obtaine d of the right and left lower extremity. FINDINGS: The deep venous system of the right and left lower extremities were evaluated from the level of the common femoral vein through the popliteal vein. Normal color flow and augmentation can be observed. In addition, normal compression is seen throughout the deep venous system. Incidental note was mad e of a 3.7 x 3 centimeter left-sided popliteal cyst. IMPRESSION: 1. Negative for DVT. 2. 3 centimeter x 3.7 centimeter left-sided popliteal cyst Reported By:
[2016-09-29] MEDS: MAGNESIUM SULFATE 1 GM/100 mL PREMIX 1 GM/100 ML BAG IV SCH ×2 (15:01→17:00)
--- NOTE | 2016-09-29 15:08 | RAD ---
HISTORY: Shortness of breath Study: Chest one view Comparison: September 28, 2016 Findings: The trachea is midline. The cardiac silhouette is enlarged. No congestive heart failure is noted. T he aorta is calcified. There is still slight widening of the upper mediastinum the this is felt like ly to be vascular in origin. It is less PROM on this examination which is less lordotic than the vega or film. The lungs are clear without focal infiltrate or effusion. The bony thorax is unremarkable. IMPRESSION: 1. Cardiomegaly without congestive heart failure 2. Lungs clear Reported By:
[2016-09-29] MEDS ORDERED: GLIMEPIRIDE 4 MG PO SCH (21:00)
[2016-09-29] MEDS: AMARYL TAB 4 MG PO SCH (21:18)
[2016-09-29] MEDS: NS 1000 ML 1,000 ML IV SCH (21:19)
[2016-09-30 05:51] LABS: ALANINE AMINOTRANSFERASE 17 Units/L (12-78); ALBUMIN 3.1 g/dL (3.4-5.0); ALKALINE PHOSPHATASE 95 Units/L (46-116); ASPARTATE AMINO TRANSFERASE 16 Units/L (15-37); BLOOD UREA NITROGEN 17 mg/dL (7-18); CALCIUM 7.8 mg/dL (8.5-10.1); CARBON DIOXIDE 25.8 mmol/L (21-32); CHLORIDE 106 mmol/L (98-107); COR CA(FOR HYPOALB) 8.5 mg/dL (8.5-10.1); COR NA(FOR HYPERGLY) 143 mmol/L (136-145); CREATININE 0.99 mg/dL (0.55-1.02); GLUCOSE 129 mg/dL (65-99); SODIUM 142 mmol/L (136-145); TOTAL PROTEIN 6.9 g/dL (6.4-8.2); eGFR BLACK RACES > 60 (>60); eGFR NON BLACK RACES 57 (>60)
[2016-09-30 06:11] LABS: BASOPHILS % (AUTO) 0.4 % (0.2-1.0); EOSINOPHILS # (AUTO) 0.2 x10^3/uL (0.0-0.2); EOSINOPHILS % (AUTO) 3.4 % (0.9-2.9); HEMATOCRIT 33.9 % (36.0-47.0); HEMOGLOBIN 11.2 g/dL (12.0-16.0); LYMPHOCYTES # (AUTO) 1.6 X10^3/uL (1.3-2.9); LYMPHOCYTES % (AUTO) 25.5 % (21.0-51.0); MEAN CORPUSCULAR HEMOGLOBIN 25.9 pg (27.0-34.0); MEAN CORPUSCULAR HGB CONC 32.9 g/dL (33.0-35.0); MEAN CORPUSCULAR VOLUME 78.6 fL (80.0-100.0); MEAN PLATELET VOLUME 7.9 fL (7.4-11.0); MONOCYTES # (AUTO) 0.5 x10^3/uL (0.3-0.8); MONOCYTES % (AUTO) 8.1 % (0.0-13.0); NEUTROPHILS # (AUTO) 3.8 x10^3/uL (2.2-4.8); NEUTROPHILS % (AUTO) 62.6 % (42.0-75.0); PLATELET COUNT 240 X10^3/uL (150.0-450.0); RED BLOOD COUNT 4.31 X10^6/uL (3.5-5.4); RED CELL DISTRIBUTION WIDTH 15.1 % (11.6-16.5); WHITE BLOOD COUNT 6.1 X10^3/uL (3.6-10.0)
[2016-09-30 06:51] LABS: HYPOCHROMASIA SLIGHT; PLATELET MORPHOLOGY COMMENT NORMAL (NORMAL)
[2016-09-30] MEDS ORDERED: CATAPRES TAB 0.2 MG PO PRN (07:42)
[2016-09-30] MEDS ORDERED: XANAX PO PRN (07:43)
[2016-09-30] MEDS ORDERED: TAPAZOLE ONE (08:11)
[2016-09-30] MEDS: AMARYL TAB 4 MG PO SCH (08:15)
[2016-09-30] MEDS: CALAN SR 240 MG PO SCH (08:15)
[2016-09-30] MEDS: TAPAZOLE PO SCH (08:15)
[2016-09-30] MEDS ORDERED: HYDROCHLOROTHIAZIDE 12.5 MG CAP PO SCH (09:00)
[2016-09-30] MEDS ORDERED: COZAAR PO SCH (09:00)
--- NOTE | 2016-09-30 10:07 | NM ---
HISTORY: Elevated D-dimer, chest pain, shortness of breath Study: Ventilation-perfusion lung scan Comparison: None Technique: Ventilation scan was carried out using inhalation of 30.3 millicuries technetium 99 M DTP A aerosol. Perfusion scan was carried out using intravenous injection of 5.4 millicuries technetium 99 MAA. Findings: Ventilation scan demonstrated symmetric ventilation without significant ventilation defects. Perfusi on scan demonstrated symmetric profusion without significant subsegmental, segmental, or lobar perfu kelly defects. The probability of acute pulmonary thromboembolic disease is felt to be low. IMPRESSION: Low probability of acute pulmonary thromboembolic disease Reported By:
[2016-09-30 11:35] VITALS: BP 194/96
== END 2016-09-30 11:15 | disposition home or self-care (01) ==
LOC: ER 18:21 → MED/SURG 21:50
PROVIDERS: ADMIT Internal Medicine; ATTEND Internal Medicine
DX: R07.2 Precordial pain (principal); I10 Essential (primary) hypertension; R79.1 Abnormal coagulation profile; R94.31 Abnormal electrocardiogram [ECG] [EKG]; R10.13 Epigastric pain; M13.89 Other specified arthritis, multiple sites; E11.65 Type 2 diabetes mellitus with hyperglycemia; K21.9 Gastro-esophageal reflux disease without esophagitis; D64.89 Other specified anemias
CPT/HCPCS: 36415; 71010; 78582; 80053; 80061; 81001; 82550; 82553; 83735; 84484; 85025; 85378; 85610; 85730; 93005; 93970; 94760; 96365; 96374; 96375; 99284; A4222; S0028; G0378; J2270; J2405

== ENCOUNTER 2017-02-09 13:41 | Emergency (ER) | payer OTHER ==
[2017-02-09 14:39] VITALS: BMI 30.8
[2017-02-09 15:20] LABS: BASOPHILS # (AUTO) 0.1 X10^3/uL (0.0-0.1); BASOPHILS % (AUTO) 1.1 % (0.2-1.0); EOSINOPHILS % (AUTO) 0.5 % (0.9-2.9); HEMATOCRIT 36.1 % (36.0-47.0); LYMPHOCYTES # (AUTO) 1.3 X10^3/uL (1.3-2.9); LYMPHOCYTES % (AUTO) 14.7 % (21.0-51.0); MEAN CORPUSCULAR HEMOGLOBIN 26.5 pg (27.0-34.0); MEAN CORPUSCULAR HGB CONC 33.2 g/dL (33.0-35.0); MEAN CORPUSCULAR VOLUME 79.6 fL (80.0-100.0); MEAN PLATELET VOLUME 7.6 fL (7.4-11.0); MONOCYTES # (AUTO) 0.6 x10^3/uL (0.3-0.8); MONOCYTES % (AUTO) 6.9 % (0.0-13.0); NEUTROPHILS # (AUTO) 6.7 x10^3/uL (2.2-4.8); NEUTROPHILS % (AUTO) 76.8 % (42.0-75.0); PLATELET COUNT 285 X10^3/uL (150.0-450.0); RED BLOOD COUNT 4.54 X10^6/uL (3.5-5.4); RED CELL DISTRIBUTION WIDTH 15.3 % (11.6-16.5); WHITE BLOOD COUNT 8.7 X10^3/uL (3.6-10.0)
[2017-02-09 15:20] LABS: BILIRUBIN,URINE NEGATIVE (NEGATIVE); BLOOD/HEMOGLOBIN,URINE 2+ (NEGATIVE); GLUCOSE, URINE NEGATIVE (NEGATIVE); KETONES,URINE NEGATIVE (NEGATIVE); LEUKOCYTE ESTERASE ,URINE 1+ (NEGATIVE); NITRITES,URINE NEGATIVE (NEGATIVE); PROTEIN,URINE 1+ (NEGATIVE); UROBILINOGEN,URINE NORMAL (NORMAL)
[2017-02-09 15:28] LABS: APPEARANCE,URINE CLEAR (CLEAR); COLOR,URINE YELLOW (YELLOW)
[2017-02-09 15:33] LABS: BACTERIA,URINE NEGATIVE /HPF (NEGATIVE); RBC,URINE 0-1 /HPF (NEGATIVE); SQUAMOUS EPITHELIAL CELL,UR FEW /HPF (NEGATIVE)
[2017-02-09 15:36] LABS: SALICYLATE < 2.8 mg/dL (2.8-20)
[2017-02-09 15:43] LABS: ALANINE AMINOTRANSFERASE 18 Units/L (12-78); ALKALINE PHOSPHATASE 121 Units/L (46-116); ASPARTATE AMINO TRANSFERASE 17 Units/L (15-37); BLOOD UREA NITROGEN 16 mg/dL (7-18); CALCIUM 9.6 mg/dL (8.5-10.1); CARBON DIOXIDE 28.6 mmol/L (21-32); CHLORIDE 99 mmol/L (98-107); COR NA(FOR HYPERGLY) 139 mmol/L (136-145); CREATININE 1.21 mg/dL (0.55-1.02); SODIUM 139 mmol/L (136-145); TOTAL PROTEIN 7.7 g/dL (6.4-8.2); eGFR BLACK RACES 54 (>60); eGFR NON BLACK RACES 45 (>60)
--- NOTE | 2017-02-09 17:10 | DR.PSYCH ---
HPI - Time Seen Time seen: 16:45 - PCP Primary Care Physician: JEOVANY RUSSELL - Complaint Chief Complaint Doctors Comments: Patient states that her daughter thinks that she is seeing things that are not there and smelling things that do not exist. Patient states that she want to clear this up as to her sanity. She want to be evaluation for mental illness. Chief Complaint:: PT HAS BEEN HAVING HALLUCINATIONS OF SMELLING SUBSTANCE THAT PEOPLE ARE TRYING TO POISON HER AND MAKE HER HAVE A HEARTATTACK. SHE ADMITS TO SEEING PEOPLE PLANTING THE DEVICES THAT ALLOWS THEM TO SEND THE SUBSTANCE THROUGH THE AIR VENTS IN THE HOUSE. Self Treatment fo Chief Complaint: WENT TO [facility] OFFICE - Source History Provided: Patient - Mode of Arrival Mode of Arrival: Ambulatory - Timing Onset of Chief Complaint: 02/02/17 - Context Presents With: Anxiety, Bizarre Behavior Ideation: None Plan: None History of: Anxiety, Depression Medication Compliance: No - Quality Quality: Terror - Associated signs and symptoms Intoxification: None PMH - PMH Past Medical History: Yes Past Medical History: Angina, Anxiety, Arthritis, Diabetes, GERD, Gout, Hypertension, Hyperthyroidism, ID Past Surgical History: Yes Surgical History: Bowel Resection, FILBERT GROWER Surgery, 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 - Family History History of Family Medical Conditions: Yes Family Medical History: Diabetes Mellitus, ID, Coronary Artery Disease, Heart Failure, Sudden Cardiac , Hypertension - Social History Does patient currently use any type of tobacco product: No Type of Tobacco Use: None Alcohol Use: None Do you use any recreational Drugs:: No Lives With: Alone Lives Where: Home - infectious screening In the last 2 months have you had wt loss of >10#?: NO Have you had fever, night sweats or hemotysis?: No Have you traveled outside the country in the last 6 months?: No Isolation: Standard ROS - Review of Systems Eyes: No Symptoms Reported ENTM: No Symptoms Reported Respiratoy: No Symptoms Reported Cardiovascular: No Symptoms Reported Gastrointestinal/Abdominal: No Symptoms Reported Genitourinary: No Symptoms Reported Neurological: No Symptoms Reported Musculoskeletal: No Symptoms Reported Integumentary: No Symptoms Reported Hematologic/Lymphatic: No Symptoms Reported Endocrine: No Symptoms Reported Psychiatric: No Symptoms Reported All Other Systems: Reviewed and Negative PE - Vitals Vitals: Temperature 98.4 F Pulse Rate 79 Respiratory Rate 16 Blood Pressure [Right Arm] 194/96 Blood Pressure 217/89 O2 Sat by Pulse Oximetry 98 - General Limitations: No Limitations General Appearance: Alert, In No Apparent Distress - Head Head Exam: Normal Inspection, Atraumatic Head Exam Physical: negative: Laceration, Abrasion, Contusion, Hematoma, Raccoon Eyes, Lundy's Sign, Tenderness of Temporal Artery, CSF Rhinorrhea, CSF Otorrhea, Other - Eyes Eye exam: Normal Appearance, PERRL, EOMI Pupils: Regular, Round: Bilateral Sclera/Conjunctival: Normal Inspection: Bilateral - ENT ENT Exam: Normal Exam, Normal Oropharynx - Neck Neck Exam: Normal Inspection, Full ROM - Chest Chest Inspection: Normal Inspection, Symmetric Chest Wall Rise - Respiratory Respiratory Exam: Normal Lung Sounds Bilat Respiratory Exam: Bilateral Clear to Auscultation - Cardiovascular Cardiovascular Exam: Regular Rate, Normal Rhythm - Abdominal Exam Abdominal Exam: Normal Inspection, Normal Bowel Sounds Abdominal Tenderness: negative: RUQ, RLQ, LUQ, LLQ, Epigastrium, Suprapubic, Diffuse, Mild, Moderate, Severe, Other - Extremities Extremities Exam: Normal Inspection, Full ROM - Back Back Exam: Normal Inspection, Full ROM - Neurologic Neurological Exam: Alert, Oriented X3, CN II-XII Intact Cranial Nerve Exam: EOM Function (II, III, IV, ): Normal Cerebellar Function: Finger to Nose: Normal - Psychiatric Psychiatric Exam: Normal Affect, Normal Mood - Skin Skin Exam: Warm, Dry, Intact Course - Reevaluation 1st: Unchanged ROR - Labs Reviewed Result Diagrams: 02/09/17 15:05 02/09/17 15:05 Laboratory: WBC 8.7 X10^3/uL (3.6-10.0) 02/09/17 15:05 RBC 4.54 X10^6/uL (3.5-5.4) 02/09/17 15:05 Hgb 12.0 g/dL (12.0-16.0) 02/09/17 15:05 Hct 36.1 % (36.0-47.0) 02/09/17 15:05 MCV 79.6 fL (80.0-100.0) L 02/09/17 15:05 MCH 26.5 pg (27.0-34.0) L 02/09/17 15:05 MCHC 33.2 g/dL (33.0-35.0) 02/09/17 15:05 RDW 15.3 % (11.6-16.5) 02/09/17 15:05 Plt Count 285 X10^3/uL (150.0-450.0) 02/09/17 15:05 MPV 7.6 fL (7.4-11.0) 02/09/17 15:05 Neut % 76.8 % (42.0-75.0) H 02/09/17 15:05 Lymph % 14.7 % (21.0-51.0) L 02/09/17 15:05 [place] % 6.9 % (0.0-13.0) 02/09/17 15:05 Eos % 0.5 % (0.9-2.9) L 02/09/17 15:05 Baso % 1.1 % (0.2-1.0) H 02/09/17 15:05 Neut # 6.7 x10^3/uL (2.2-4.8) H 02/09/17 15:05 Lymph # 1.3 X10^3/uL (1.3-2.9) 02/09/17 15:05 [place] # 0.6 x10^3/uL (0.3-0.8) 02/09/17 15:05 Eos # 0.0 x10^3/uL (0.0-0.2) 02/09/17 15:05 Baso # 0.1 X10^3/uL (0.0-0.1) 02/09/17 15:05 Absolute Nucleated RBC 0.0 /100WBC 02/09/17 15:05 Sodium 139 mmol/L (136-145) 02/09/17 15:05 Corrected Sodium 139 mmol/L (136-145) 02/09/17 15:05 Potassium 3.2 mmol/L (3.5-5.1) L 02/09/17 15:05 Chloride 99 mmol/L (98-107) 02/09/17 15:05 Carbon Dioxide 28.6 mmol/L (21-32) 02/09/17 15:05 BUN 16 mg/dL (7-18) 02/09/17 15:05 Creatinine 1.21 mg/dL (0.55-1.02) H 02/09/17 15:05 Est GFR (MDRD) Af Amer 54 (>60) L 02/09/17 15:05 Est GFR (MDRD) Non-Af 45 (>60) L 02/09/17 15:05 Glucose 113 mg/dL (65-99) H 02/09/17 15:05 Calcium 9.6 mg/dL (8.5-10.1) 02/09/17 15:05 Corrected Calcium TNP 02/09/17 15:05 Total Bilirubin 0.40 mg/dL (0.2-1.0) 02/09/17 15:05 AST 17 Units/L (15-37) 02/09/17 15:05 ALT 18 Units/L (12-78) 02/09/17 15:05 Alkaline Phosphatase 121 Units/L (46-116) H 02/09/17 15:05 Total Protein 7.7 g/dL (6.4-8.2) 02/09/17 15:05 Albumin 4.0 g/dL (3.4-5.0) 02/09/17 15:05 Globulin 3.7 g/dL (2.5-4.5) 02/09/17 15:05 Albumin/Globulin Ratio 1.1 Ratio (1.1-2.1) 02/09/17 15:05 Specimen Type Clean catch urine 02/09/17 14:51 Urine Color Yellow (YELLOW) 02/09/17 14:51 Urine Appearance Clear (CLEAR) 02/09/17 14:51 Urine pH 7.0 (5.0 - 8.0) 02/09/17 14:51 Ur Specific [place] 1.010 (1.000-1.030) 02/09/17 14:51 Urine Protein 1+ (NEGATIVE) 02/09/17 14:51 Urine Glucose (UA) Negative (NEGATIVE) 02/09/17 14:51 Urine Ketones Negative (NEGATIVE) 02/09/17 14:51 Urine Occult Blood 2+ (NEGATIVE) 02/09/17 14:51 Urine Nitrite Negative (NEGATIVE) 02/09/17 14:51 Urine Bilirubin Negative (NEGATIVE) 02/09/17 14:51 Urine Urobilinogen Normal (NORMAL) 02/09/17 14:51 Ur Leukocyte Esterase 1+ (NEGATIVE) 02/09/17 14:51 Urine RBC 0-1 /HPF (NEGATIVE) 02/09/17 14:51 Urine WBC 0-3 /HPF (NEGATIVE) 02/09/17 14:51 Ur Squamous Epith Cells Few /HPF (NEGATIVE) 02/09/17 14:51 Urine Bacteria Negative /HPF (NEGATIVE) 02/09/17 14:51 Ur Culture Indicated? No/not indicated 02/09/17 14:51 Salicylates < 2.8 mg/dL (2.8-20) L 02/09/17 15:05 Urine Opiates Screen Negative (NEG=<300) 02/09/17 14:51 Urine Methadone Screen Negative (NEG=<300) 02/09/17 14:51 Acetaminophen 0.0 ug/mL (10-30) L 02/09/17 15:05 Ur Barbiturates Screen Negative (NEG=<200) 02/09/17 14:51 Ur Phencyclidine Scrn Negative (NEG=<25) 02/09/17 14:51 Ur Amphetamines Screen Negative (NEG=<1000) 02/09/17 14:51 U Benzodiazepines Scrn Negative (NEG=<200) 02/09/17 14:51 Urine Cocaine Screen Negative (NEG=<300) 02/09/17 14:51 U Marijuana (THC) Screen Negative (NEG=<50) 02/09/17 14:51 - Diagnosis Discharge Problem: Psychiatric symptoms, Hallucination - Discharge Plan Condition: Stable - Follow ups/Referrals Follow ups/Referrals: JEOVANY RUSSELL [Primary Care Provider] - 3 days - Instructions
[2017-02-09] MEDS ORDERED: K-LYTE EFFERVESCENT PO SCH (17:13)
[2017-02-09] MEDS ORDERED: K-LYTE EFFERVESCENT ONE (17:14)
[2017-02-09 18:44] VITALS: BP 189/84
== END 2017-02-09 18:45 ==
LOC: ER 15:03
DX: F29 Unspecified psychosis not due to a substance or known physiological condition (principal); R44.3 Hallucinations, unspecified
CPT/HCPCS: 36415; 80053; 80307; 81001; 85025; 93005; 93010; 99283; 99285; G0434; G6038; G6039

== ENCOUNTER 2018-07-29 23:37 | Inpatient (IN) ==
[2018-07-30 00:18] VITALS: BMI 29.0
--- NOTE | 2018-07-30 00:20 | DR.CP ---
HPI Time Seen Time Seen by Provider: 07/30/18 00:00 PCP Primary Care Physician: CARA BYRNE HPI Comment HPI Comment: PATIENT IS 88YR OLD FEMALE IN ED WITH ELEVATED BP AND CHEST PAIN FOR SEVERAL HOURS. PAIN IS PRESSORE UNDER THE LEFT BREABP MED PLUS 0.2MG CLONIDST THAT RADIATES TO BACK AND LEFT SHOULDER. PAIN 7/10. HER BLOOD PRESSURE HAVE REMAIN ELEVATED MOST OF THE DAY. TAKE 3 DIFFERENT BP MEDS PLUS PRN CLONIDE PO. DENIES DIZZINESS OR HEADACHE. HAVE HAD SINUS PROBLEM AND TOOK SINUS MEDS. Complaint Chief Complaint Doctor Comments: CHEST PAIN, ELEVATED BLOOD PRESSURE TIMES Chief Complaint:: STATES SHE WOKE UP WITH CHEST PAIN. STATES THE PAIN IS ON THE LEFT SIDE OF HER CHEST UNDER BREAST. STATES HER B/P 238/110 AT HOME. STATES SHE TOOK A CATAPRES 0.2 AROUND 10:20 PM. Self Treatment fo Chief Complaint: CATAPRES 0.2MG PO Reviewed Nurses Notes Review: Yes Source History Provided: Patient and Family Member Mode of Arrival Mode of Arrival: In Arms Timing Onset of Chief Complaint: 07/29/18 Came on: Suddenly Pain: Present Now Duration Duration: Constant Duration: Hours Location Location of Chest Pain: Left and Chest Chest Pain Radiation Location: Left Shoulder and Back Context Onset: With light exertion Cardiac Risk Factors: Family History, HTN and Diabetes PE Risk Factors: None History of: Similar pain in the past, [place], Angina and Aspirin in last 24 hours Prehospital Care: ASA Quality Quality: Pressure like and Heavy Severity Severity: Moderate Modifying Factors Worsens: Exertion Impoves: Rest Associated Signs and Symptoms Associated Signs and Symptoms: Shortness of Breath and Nausea/Vomiting Other History Other History: HISTORY HYPERTENSION AND DM WITH PREVIOUS [place]. 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 Family History History of Family Medical Conditions: Yes Family Medical History: Diabetes Mellitus, [place], Coronary Artery Disease, Heart Failure, Sudden Cardiac and Hypertension Social History Does patient currently use any type of tobacco product: No Have you used tobacco products in the last 12 months: No Type of Tobacco Use: None Does any household member use tobacco: No Alcohol Use: None Do you use any recreational Drugs:: No Lives With: Family Lives Where: Home infectious screening In the last 2 months have you had wt loss of >10#?: NO Have you had fever, night sweats or hemotysis?: No Have you traveled outside the country in the last 6 months?: No Isolation: Standard ROS Review of Systems Constitutional: See HPI, Fever, Weakness and Fatigue; negative Chills and Loss of Appetite Eyes: No Symptoms Reported and See HPI; negative Eye Pain, Blurred Vision and Discharge ENTM: No Symptoms Reported and See HPI; negative Ear Pain, Nose Discharge, Nose Congestion and Throat Pain Respiratoy: See HPI, Non-Productive Cough and Short of Breath (ON EXERTION.); negative Wheezing and Hemoptysis Cardiovascular: See HPI and Chest Pain; negative Edema and Syncope Gastrointestinal/Abdominal: See HPI and Nausea; negative Abdominal Pain, Constipation, Diarrhea and Vomiting Genitourinary: No Symptoms Reported and See HPI; negative Dysuria, Frequency and Hematuria Neurological: No Symptoms Reported, See HPI and Weakness; negative Headache, Dizziness and Speech Problem Musculoskeletal: See HPI, Back Pain and Muscle Pain; negative Neck Pain Integumentary: See HPI, Change in Hair/Nails and Dryness; negative Change in Color Hematologic/Lymphatic: See HPI; negative Easy Bleeding, Easy Bruising and Swollen Glands Endocrine: No Symptoms Reported and See HPI; negative Increased Thirst, Increased Urine and Decreased Appetite Psychiatric: No Symptoms Reported and See HPI All Other Systems: Reviewed and Negative PE Vitals Vitals: Temperature 99 F Pulse Rate [Left Brachial] 61 Pulse Rate 63 Respiratory Rate 15 Blood Pressure [Left Arm] 176/70 Blood Pressure [Right Arm] 182/76 Blood Pressure 187/88 O2 Sat by Pulse Oximetry 99 General Limitations: No Limitations General Appearance: Alert and In No Apparent Distress; negative In Distress Head Head Exam: Normal Inspection, Atraumatic and Normocephalic Eyes Eye exam: Normal Appearance, PERRL and EOMI; negative Scleral Icterus and Conjunctival Injection ENT ENT Exam: Normal Exam, Normal Oropharynx, Normal External Ear Exam, Mucous Membranes Moist and TM's Normal Bilaterally Chest Chest Inspection: Normal Inspection and Symmetric Chest Wall Rise; negative Tenderness and Rash Respiratory Respiratory Exam: Normal Lung Sounds Bilat; negative Accessory Muscle Use, Chest Wall Tenderness and Respiratory Distress Respiratory Exam: Bilateral: Rhonchi and Lower: Rhonchi Cardiovascular Cardiovascular Exam: Regular Rate, Normal Rhythm and Normal Heart Sounds; negative Systolic Murmur, Diastolic Murmur, Rubs and Gallop Pulse: Normal Edema: Normal Abdominal Exam Abdominal Exam: Normal Inspection, Normal Bowel Sounds and Soft; negative Tenderness, Organomegaly and Mass Extremities Extremities Exam: Normal Inspection and Normal Capillary Refill; negative Tenderness, Edema and Calf Tenderness Back Back Exam: Normal Inspection; negative Tenderness, Paraspinal Tenderness and Vertebral Tenderness Neurologic Neurological Exam: Alert, Oriented X3 and CN II-XII Intact; negative Motor Sensory Deficit Psychiatric Psychiatric Exam: Normal Affect and Normal Mood Skin Skin Exam: Warm, Dry, Intact and Normal Color MDM Additional Information Additional Information Obtained From: Family Differential Diagnosis Differential Diagnosis: Angina, CHF (HYPERTENSIVE EMERGENCY.), Myocardial Infarction, Pericarditis, Pleuritis, Pneumonia, Pneumothorax and Pulmonary Embolus COURSE Treatment Treatment: SEE ORDERS. 02:19 : LABETALOL 10MG IV. Reevaluation 1st: Improved (BP IMPROVING.) Consultation Consultation Comments: DISCUSS PATIENT WITH DR. PATTERSON. HE WILL ADMIT PATIENT. TIME, 1MINUTE. ADM. ORDERS DONE. Education/Counseling Education/Counseling: Patient and Family Educated On: Diagnosis ROR Labs Reviewed Laboratory Results Reviewed?: Yes Result Diagrams: 07/30/18 05:25 07/30/18 09:09 Laboratory: WBC 7.0 X10^3/uL (3.6-10.0) 07/30/18 05:25 RBC 4.26 X10^6/uL (3.5-5.4) 07/30/18 05:25 Hgb 11.2 g/dL (12.0-16.0) L 07/30/18 05:25 Hct 33.4 % (36.0-47.0) L 07/30/18 05:25 MCV 78.5 fL (80.0-100.0) L 07/30/18 05:25 MCH 26.3 pg (27.0-34.0) L 07/30/18 05:25 MCHC 33.5 g/dL (33.0-35.0) 07/30/18 05:25 RDW 14.6 % (11.6-16.5) 07/30/18 05:25 Plt Count 278 X10^3/uL (150.0-450.0) 07/30/18 05:25 MPV 7.1 fL (7.4-11.0) L 07/30/18 05:25 Neut % (Auto) 78.4 % (42.0-75.0) H 07/30/18 05:25 Lymph % (Auto) 12.2 % (21.0-51.0) L 07/30/18 05:25 Weld % (Auto) 8.5 % (0.0-13.0) 07/30/18 05:25 Eos % (Auto) 0.4 % (0.9-2.9) L 07/30/18 05:25 Baso % (Auto) 0.5 % (0.2-1.0) 07/30/18 05:25 Neut # (Auto) 5.5 x10^3/uL (2.2-4.8) H 07/30/18 05:25 Lymph # (Auto) 0.9 X10^3/uL (1.3-2.9) L 07/30/18 05:25 [place]eld # (Auto) 0.6 x10^3/uL (0.3-0.8) 07/30/18 05:25 Eos # (Auto) 0.0 x10^3/uL (0.0-0.2) 07/30/18 05:25 Baso # (Auto) 0.0 X10^3/uL (0.0-0.1) 07/30/18 05:25 Absolute Nucleated RBC 0.0 /100WBC 07/30/18 05:25 Sodium 124 mmol/L (136-145) L* 07/30/18 05:25 Corrected Sodium 127 mmol/L (136-145) L 07/30/18 05:25 Potassium 3.3 mmol/L (3.5-5.1) L 07/30/18 09:09 Chloride 88 mmol/L (98-107) L 07/30/18 05:25 Carbon Dioxide 26.5 mmol/L (21-32) 07/30/18 05:25 BUN 20 mg/dL (7-18) H 07/30/18 05:25 Creatinine 1.06 mg/dL (0.55-1.02) H 07/30/18 05:25 Est GFR (MDRD) Af Amer > 60 (>60) 07/30/18 05:25 Est GFR (MDRD) Non-Af 52 (>60) L 07/30/18 05:25 Glucose 221 mg/dL (65-99) H 07/30/18 05:25 POC Glucose (mg/dL) 220 mg/dL (65-99) H 07/30/18 05:51 Calcium 9.0 mg/dL (8.5-10.1) 07/30/18 05:25 Corrected Calcium TNP 07/30/18 05:25 Magnesium 1.7 mg/dL (1.7-2.9) 07/30/18 05:25 Total Bilirubin 0.40 mg/dL (0.2-1.0) 07/30/18 05:25 AST 28 Units/L (15-37) 07/30/18 05:25 ALT 21 Units/L (12-78) 07/30/18 05:25 Alkaline Phosphatase 120 Units/L (46-116) H 07/30/18 05:25 Creatine Kinase 255 Units/L (26-192) H 07/30/18 09:09 CK-MB (CK-2) 3.6 ng/mL (0-4.0) 07/30/18 09:09 CK/CKMB % Calc 1.4 % (<4) 07/30/18 09:09 Troponin I < 0.02 ng/mL (0-1.5) 07/30/18 09:09 Total Protein 6.9 g/dL (6.4-8.2) 07/30/18 05:25 Albumin 3.4 g/dL (3.4-5.0) 07/30/18 05:25 Globulin 3.5 g/dL (2.5-4.5) 07/30/18 05:25 Albumin/Globulin Ratio 1.0 Ratio (1.1-2.1) L 07/30/18 05:25 Triglycerides 55 mg/dL (0-150) 07/30/18 05:25 Cholesterol 210 mg/dL (0-200) H 07/30/18 05:25 LDL Cholesterol, Calc 124 mg/dL (0-100) H 07/30/18 05:25 HDL Cholesterol 75 mg/dL (40-60) H 07/30/18 05:25 Cholesterol/HDL Ratio 2.8 (0.0-5.0) 07/30/18 05:25 Specimen Type Clean catch urine 07/30/18 04:50 Urine Color Pale yellow (YELLOW) 07/30/18 04:50 Urine Appearance Clear (CLEAR) 07/30/18 04:50 Urine pH 6.5 (5.0 - 8.0) 07/30/18 04:50 Ur Specific [place] 1.010 (1.000-1.030) 07/30/18 04:50 Urine Protein 1+ (NEGATIVE) 07/30/18 04:50 Urine Glucose (UA) Negative (NEGATIVE) 07/30/18 04:50 Urine Ketones 1+ (NEGATIVE) 07/30/18 04:50 Urine Occult Blood 1+ (NEGATIVE) 07/30/18 04:50 Urine Nitrite Negative (NEGATIVE) 07/30/18 04:50 Urine Bilirubin Negative (NEGATIVE) 07/30/18 04:50 Urine Urobilinogen Normal (NORMAL) 07/30/18 04:50 Ur Leukocyte Esterase Negative (NEGATIVE) 07/30/18 04:50 Urine RBC 0-2 /HPF (NONE SEEN) 07/30/18 04:50 Urine WBC 0-2 /HPF (NONE SEEN) 07/30/18 04:50 Ur Squamous Epith Cells Rare /HPF (NEGATIVE) 07/30/18 04:50 Urine Bacteria Negative /HPF (NEGATIVE) 07/30/18 04:50 Ur Culture Indicated? No/not indicated 07/30/18 04:50 XRAY XRAY Interpreted by: Radiologist XRAY Findings: REPORT ON RECORD NOTED AND DISCUSS WITH PATIENT. Diagnosis Discharge Problem: Hypertensive emergency, Acute hyponatremia Chest pain Qualifiers: Chest pain type: precordial pain Qualified Code(s): R07.2 - Precordial pain
[2018-07-30 00:59] LABS: BASOPHILS # (AUTO) 0.1 X10^3/uL (0.0-0.1); BASOPHILS % (AUTO) 0.8 % (0.2-1.0); EOSINOPHILS # (AUTO) 0.1 x10^3/uL (0.0-0.2); EOSINOPHILS % (AUTO) 0.7 % (0.9-2.9); HEMATOCRIT 33.9 % (36.0-47.0); HEMOGLOBIN 11.2 g/dL (12.0-16.0); LYMPHOCYTES % (AUTO) 12.2 % (21.0-51.0); MEAN CORPUSCULAR HEMOGLOBIN 26.2 pg (27.0-34.0); MEAN CORPUSCULAR HGB CONC 33.2 g/dL (33.0-35.0); MEAN PLATELET VOLUME 7.1 fL (7.4-11.0); MONOCYTES # (AUTO) 0.6 x10^3/uL (0.3-0.8); MONOCYTES % (AUTO) 7.5 % (0.0-13.0); NEUTROPHILS # (AUTO) 6.5 x10^3/uL (2.2-4.8); NEUTROPHILS % (AUTO) 78.8 % (42.0-75.0); PLATELET COUNT 279 X10^3/uL (150.0-450.0); RED BLOOD COUNT 4.29 X10^6/uL (3.5-5.4); RED CELL DISTRIBUTION WIDTH 14.9 % (11.6-16.5); WHITE BLOOD COUNT 8.2 X10^3/uL (3.6-10.0)
[2018-07-30 01:40] LABS: ALANINE AMINOTRANSFERASE 20 Units/L (12-78); ALBUMIN 3.5 g/dL (3.4-5.0); ALKALINE PHOSPHATASE 135 Units/L (46-116); ASPARTATE AMINO TRANSFERASE 24 Units/L (15-37); BLOOD UREA NITROGEN 24 mg/dL (7-18); CALCIUM 8.8 mg/dL (8.5-10.1); CARBON DIOXIDE 26.3 mmol/L (21-32); CHLORIDE 86 mmol/L (98-107); CKMB % 1.5 % (<4); COR NA(FOR HYPERGLY) 125 mmol/L (136-145); CREATINE KINASE 273 Units/L (26-192); CREATININE 1.25 mg/dL (0.55-1.02); TOTAL PROTEIN 7.1 g/dL (6.4-8.2); TROPONIN I < 0.02 ng/mL (0-1.5); eGFR NON BLACK RACES 43 (>60)
[2018-07-30] MEDS ORDERED: NIFEDIPINE CAP 10 MG PO ONE (01:40)
[2018-07-30 01:43] LABS: CREATINE KINASE MB 4.2 ng/mL (0-4.0); SODIUM 122 mmol/L (136-145)
[2018-07-30] MEDS ORDERED: NORMODYNE INJ 100 MG VIAL ONE (02:20)
[2018-07-30] MEDS: NORMODYNE INJ 20 MG VIAL IVP PRN ×3 (02:31→18:15)
[2018-07-30] MEDS ORDERED: NITROSTAT SL PRN (03:08)
--- NOTE | 2018-07-30 03:37 | RAD ---
Chest, one view Indication: Woke up with chest pain Comparison: 09/29/2016 Findings: There is stable enlargement of the cardiac silhouette without congestive failure. Tortuosity of the thoracic aorta again noted. Prominence of the right paratracheal stripe is unchanged since prior exam and is again likely vascular in origin. No focal infiltrate or significant effusion is identified. No pneumothorax. Impression: Stable cardiomegaly without acute cardiopulmonary abnormality. Prominence of the right paratracheal stripe, unchanged since 2017 and again likely vascular in nature. This can be further evaluated with CT on a nonemergent basis if indicated. Reported By:
[2018-07-30] MEDS ORDERED: PREVNAR 13 IM ONE ×2 (04:06→08:32)
[2018-07-30] MEDS ORDERED: NS 1000 ML 1,000 ML ONE (04:34)
[2018-07-30] MEDS ORDERED: CALAN SR 240 MG PO ONE (04:36)
[2018-07-30] MEDS: CALAN SR 240 MG PO SCH ×3 (04:50→20:47)
[2018-07-30] MEDS: NS 1000 ML 1,000 ML IV SCH ×2 (04:52→18:05)
[2018-07-30 05:23] LABS: BILIRUBIN,URINE NEGATIVE (NEGATIVE); BLOOD/HEMOGLOBIN,URINE 1+ (NEGATIVE); GLUCOSE, URINE NEGATIVE (NEGATIVE); KETONES,URINE 1+ (NEGATIVE); LEUKOCYTE ESTERASE ,URINE NEGATIVE (NEGATIVE); NITRITES,URINE NEGATIVE (NEGATIVE); PH,URINE 6.5 (5.0 - 8.0); PROTEIN,URINE 1+ (NEGATIVE); UROBILINOGEN,URINE NORMAL (NORMAL)
[2018-07-30] MEDS ORDERED: POTASSIUM CHL 60 MEQ/NS 0.45% 500 ML IV PRN (05:27)
[2018-07-30] MEDS ORDERED: POTASSIUM CHL 40 MEQ/NS 0.45% 500 ML IV PRN (05:27)
[2018-07-30] MEDS ORDERED: K-DUR TAB 20 MEQ PO PRN (05:27)
[2018-07-30] MEDS ORDERED: POTASSIUM CHLORIDE LIQ 20 MEQ UDC PO PRN (05:27)
[2018-07-30] MEDS ORDERED: K-RIDER 10 MEQ/NS 100 ML 10 MEQ/100 ML BAG IV PRN (05:27)
[2018-07-30 05:33] LABS: APPEARANCE,URINE CLEAR (CLEAR); BACTERIA,URINE NEGATIVE /HPF (NEGATIVE); COLOR,URINE PALE YELLOW (YELLOW); RBC,URINE 0-2 /HPF (NONE SEEN); SQUAMOUS EPITHELIAL CELL,UR RARE /HPF (NEGATIVE)
[2018-07-30] MEDS ORDERED: POTASSIUM CHLORIDE LIQ 20 MEQ UDC ONE (05:34)
[2018-07-30] MEDS: KLOR-CON PO PRN ×2 (05:41→11:40)
[2018-07-30] MEDS: HumuLIN R SUBCUT PRN ×3 (06:14→20:47)
[2018-07-30 06:25] LABS: BASOPHILS % (AUTO) 0.5 % (0.2-1.0); EOSINOPHILS % (AUTO) 0.4 % (0.9-2.9); HEMATOCRIT 33.4 % (36.0-47.0); HEMOGLOBIN 11.2 g/dL (12.0-16.0); LYMPHOCYTES # (AUTO) 0.9 X10^3/uL (1.3-2.9); LYMPHOCYTES % (AUTO) 12.2 % (21.0-51.0); MEAN CORPUSCULAR HEMOGLOBIN 26.3 pg (27.0-34.0); MEAN CORPUSCULAR HGB CONC 33.5 g/dL (33.0-35.0); MEAN CORPUSCULAR VOLUME 78.5 fL (80.0-100.0); MEAN PLATELET VOLUME 7.1 fL (7.4-11.0); MONOCYTES # (AUTO) 0.6 x10^3/uL (0.3-0.8); MONOCYTES % (AUTO) 8.5 % (0.0-13.0); NEUTROPHILS # (AUTO) 5.5 x10^3/uL (2.2-4.8); NEUTROPHILS % (AUTO) 78.4 % (42.0-75.0); PLATELET COUNT 278 X10^3/uL (150.0-450.0); RED BLOOD COUNT 4.26 X10^6/uL (3.5-5.4); RED CELL DISTRIBUTION WIDTH 14.6 % (11.6-16.5)
[2018-07-30 06:38] LABS: ALANINE AMINOTRANSFERASE 21 Units/L (12-78); ALBUMIN 3.4 g/dL (3.4-5.0); ALKALINE PHOSPHATASE 120 Units/L (46-116); ASPARTATE AMINO TRANSFERASE 28 Units/L (15-37); BLOOD UREA NITROGEN 20 mg/dL (7-18); CARBON DIOXIDE 26.5 mmol/L (21-32); CHLORIDE 88 mmol/L (98-107); CHOL/HDL RATIO 2.8 (0.0-5.0); CHOLESTEROL 210 mg/dL (0-200); CKMB % 1.4 % (<4); COR NA(FOR HYPERGLY) 127 mmol/L (136-145); CREATINE KINASE 273 Units/L (26-192); CREATINE KINASE MB 3.9 ng/mL (0-4.0); CREATININE 1.06 mg/dL (0.55-1.02); HDL CHOLESTEROL 75 mg/dL (40-60); MAGNESIUM 1.7 mg/dL (1.7-2.9); TOTAL PROTEIN 6.9 g/dL (6.4-8.2); TRIGLYCERIDES 55 mg/dL (0-150); TROPONIN I 0.02 ng/mL (0-1.5); eGFR NON BLACK RACES 52 (>60)
[2018-07-30 06:40] LABS: SODIUM 124 mmol/L (136-145)
[2018-07-30] MEDS ORDERED: TAPAZOLE ONE ×2 (08:10→20:37)
[2018-07-30] MEDS: TAPAZOLE PO SCH ×2 (08:43→20:46)
[2018-07-30] MEDS: AMARYL TAB 4 MG PO SCH ×2 (08:44→20:47)
[2018-07-30] MEDS: PROTONIX TAB 40 MG PO SCH (08:44)
[2018-07-30] MEDS: LOVENOX INJ 40 MG SYR SC SCH (08:44)
[2018-07-30] MEDS ORDERED: PHARMACY CONSULT - DOSE _____ XX SCH (09:00)
[2018-07-30] MEDS ORDERED: HYZAAR 50/12.5 MG PO SCH (09:00)
[2018-07-30] MEDS ORDERED: PATIENT'S HOME MEDICATION (Losartan-Hydrochlorothiazide [Losartan-Hydrochlorothiazide] 1 T PO SCH (09:00)
[2018-07-30 09:43] LABS: CKMB % 1.4 % (<4); CREATINE KINASE 255 Units/L (26-192); CREATINE KINASE MB 3.6 ng/mL (0-4.0); TROPONIN I < 0.02 ng/mL (0-1.5)
[2018-07-30] MEDS: COZAAR PO SCH (10:34)
[2018-07-30] MEDS: APRESOLINE TAB 25 MG PO SCH ×3 (10:34→21:04)
[2018-07-30] MEDS ORDERED: CATAPRES-TTS-3 TD SCH (11:00)
--- NOTE | 2018-07-30 14:10 | CT ---
HISTORY: Difficulty breathing, concern for obstruction deviated septum Study: CT paranasal sinuses without contrast Comparison: None Technique: Multiple axial images of the paranasal sinuses were obtained without the administration of IV contrast. Coronal and sagittal reformats were performed and reviewed. Findings: A mucous retention cyst within the left maxillary sinus is observed measuring 1.1 x 1.2 cm in the coronal plane. The maxillary sinuses, anterior and posterior ethmoid air cells, sphenoid sinuses, and frontal sinuses demonstrate no evidence for mucosal inflammatory disease. The nasal septum is midline. The ostiomeatal unit on the right and left are widely patent without inflammatory change. The left and right frontal recesses are unremarkable in their appearance. Visualized portions of the posterior fossa and intracranial structures are unremarkable as well. IMPRESSION: A mucous retention cyst the left maxillary sinus is observed. Otherwise, unremarkable evaluation of the CT sinuses. Reported By:
[2018-07-30 15:46] LABS: CKMB % 1.3 % (<4); CREATINE KINASE 237 Units/L (26-192)
[2018-07-30 17:14] LABS: TROPONIN I < 0.02 ng/mL (0-1.5)
[2018-07-30] MEDS ORDERED: TYLENOL 325 MG TAB PO ONE (17:54)
[2018-07-30] MEDS: TYLENOL 325 MG TAB PO PRN (17:57)
[2018-07-30 19:55] LABS: CREATINE KINASE 212 Units/L (26-192); TROPONIN I < 0.02 ng/mL (0-1.5)
[2018-07-30] MEDS: SNACK - Diabetic Appropriate PO SCH (20:44)
[2018-07-30] MEDS: RESTORIL CAP 15 MG PO PRN (20:59)
[2018-07-30] MEDS ORDERED: MAGNESIUM SULFATE 1 GRAM/100 mL PREMIX 2 G/200 ML BAG IV ONE (21:53)
[2018-07-30 21:57] LABS: CKMB % 1.4 % (<4); CREATINE KINASE MB 2.9 ng/mL (0-4.0)
[2018-07-30] MEDS: MICRO K EXTEN CAP 10 MEQ PO PRN (21:59)
[2018-07-30] MEDS: MAGNESIUM SULFATE 1 GRAM/100 mL PREMIX 1 GM/100 ML BAG IV PRN ×2 (21:59→23:09)
--- NOTE | 2018-07-30 22:58 | DR.H&P ---
H&P - History & Physical for Day of: H&P Date: 07/30/18 - Chief Complaint Chief Complaint: CHEST PAIN, HYPERTENSION - History of Present Illness History of Present Illness: IS A 88 YEAR OLD PATIENT OF OURS WHO PRESENTED TO THE ER WITH COMPLAINTS OF CHEST PAIN AND INCREASED BLOOD PRESSURE. PAIN IS REPORTEDLY ON THE LEFT SIDE OF THE CHEST, UNDER BREAST, AND RATED AT 7/10. SHE REPORTS A BLOOD PRESSURE OF 238/110 AT HOME. SHE REPORTS TAKING A CATAPRES 0.2MG PO X 1 AT APPROXIMATELY 10:20 PM. SHE DENIES HEADACHE, BUT REPORTS SINUS CONGESTION. ON ARRIVAL TO THE ER, VITALS WERE 97.7-76-22-98%-218/97. LABS WERE OBTAINED. ABNORMAL LAB VALUES INCLUDE THE FOLLOWING: HGB 11.2, HCT 33.9, SODIUM 122, POTASSIUM 3.1, CHLORIDE 86, BUN 24, CREATININE 1.25, GLUCOSE 219, ALK PHOS 135, CREATINE KINASE 273, CK-MB 4.2, CHOLESTEROL 210, LDL 124, HCL 75. URINALYSIS UNREMARKABLE. A CHEST XRAY WAS OBTAINED AND REVEALED: Stable cardiomegaly without acute cardiopulmonary abnormality. Prominence of the right paratracheal stripe, unchanged since 2017 and again likely vascular in nature. This can be further evaluated with CT on a nonemergent basis if indicated. EKG WAS OBTAINED AND REVEALED: SINUS RHYTHM WITH HR 68. SHE WAS ADMITTED FOR FURTHER EVALUATION AND TREATMENT OF CHEST PAIN RULE OUT ACUTE DC, HYPERTENSION, AND HYPONATREMIA. WE WILL START NORMAL SALINE AT 50ML/HR, HYDRALAZINE 25MG PO TID, AND D/C THE HCTZ AND ONLY ADMINISTER LOSARTAN. WE WILL OBTAIN A SINUS CT AND CONTINUE TO OBTAIN SERIAL CARDIAC ENZYMES AND EKG. OTHERWISE, WE WILL FOLLOW UP WITH AM LABS AND CONTINUE TO MONITOR. 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 - Family History Family Medical History: Diabetes Mellitus, [place], Coronary Artery Disease, Heart Failure, Sudden Cardiac , Hypertension - Social History Does patient currently use any type of tobacco product: No Have you used tobacco products in the last 12 months: No Type of Tobacco Use: None Does any household member use tobacco: No Alcohol Use: None Drug Use: None - Medications Home Medications: codeine Allergy (Verified 07/09/17 21:36) Penicillins Allergy (Verified 07/09/17 21:36) shellfish derived Allergy (Verified 07/09/17 21:36) CONTINUE taking the following medications bimatoprost [Lumigan] 1 drp OPHTHALMIC (EYE) HS 07/30/18 [History] clonidine 1 patch TRANSDERMAL QWEEK 07/30/18 [History] clonidine HCl 0.2 mg PO TID PRN 07/30/18 [History] glimepiride 4 mg PO BID 07/30/18 [History] losartan-hydrochlorothiazide 1 tab PO QAM 07/30/18 [History] methimazole 5 mg PO BID 07/30/18 [History] pantoprazole 40 mg PO DAILY 07/30/18 [History] verapamil 240 mg PO BID 07/30/18 [History] - Review of Systems Constitutional: Weakness Eyes: No Symptoms Reported ENT: Nose Congestion Respiratory: No Symptoms Reported Cardiovascular: Chest Pain, Light Headedness Gastrointestinal: No Symptoms Reported Genitourinary: No Symptoms Reported Musculoskeletal: No Symptoms Reported Skin: No Symptoms Reported Neurological: Weakness - Physical Exam Vital Signs: Temperature 98.1 F Pulse Rate [Left Brachial] 61 Pulse Rate 62 Respiratory Rate 25 Blood Pressure [Left Arm] 176/70 Blood Pressure [Right Arm] 182/76 Blood Pressure 167/77 O2 Sat by Pulse Oximetry 97 Oriented: Normal Eyes: Normal Ear: Normal Nose: Normal Throat: Normal Respiratory: Diminished Throughout Cardiovascular: Normal. negative: S3, S4, Murmur : Normal Auscultation: Bowel Sounds: Normal Palpation: Normal Tenderness: Normal Skin: Normal Musculoskeletal: Normal Psychiatric: Normal Mood Description: Calm Affect: Normal Speech Pattern: Clear - Assessment/Plan (1) Hypertensive emergency Status: Acute Plan: HYDRALAZINE 25MG PO TID, LOSARTAN 100MG PO DAILY, CATAPRES 0.3MG PATCH, CONTINUE TO MONITOR (2) Chest pain Qualifiers: Chest pain type: precordial pain Qualified Code(s): R07.2 - Precordial pain Status: Acute Plan: OBTAIN SERIAL CARDIAC ENZYMES AND EKG, CONTINUE TO MONITOR (3) Acute hyponatremia Status: Acute Plan: NORMAL SALINE AT 50ML/HR, CONTINUE TO MONITOR - Allergies Allergies/Adverse Reactions: Allergies Allergy/AdvReac Type Severity Reaction Status Date / Time codeine Allergy Verified 07/09/17 21:36 Penicillins Allergy Verified 07/09/17 21:36 shellfish derived Allergy Verified 07/09/17 21:36
[2018-07-30 23:51] LABS: CREATINE KINASE 209 Units/L (26-192); TROPONIN I < 0.02 ng/mL (0-1.5)
[2018-07-30 23:52] LABS: CKMB % 1.4 % (<4)
[2018-07-31] MEDS ORDERED: NORMODYNE INJ 100 MG VIAL ONE (01:09)
[2018-07-31] MEDS: NORMODYNE INJ 20 MG VIAL IVP PRN ×2 (01:15→11:11)
[2018-07-31] MEDS: NS 1000 ML 1,000 ML IV SCH ×4 (01:29→21:22)
[2018-07-31] MEDS ORDERED: ZOFRAN INJ 4 MG VIAL IVP PRN (03:25)
[2018-07-31] MEDS ORDERED: ZOFRAN INJ 4 MG VIAL ONE (03:26)
[2018-07-31 03:36] LABS: BASOPHILS # (AUTO) 0.1 X10^3/uL (0.0-0.1); BASOPHILS % (AUTO) 0.9 % (0.2-1.0); EOSINOPHILS # (AUTO) 0.1 x10^3/uL (0.0-0.2); EOSINOPHILS % (AUTO) 1.5 % (0.9-2.9); HEMATOCRIT 36.5 % (36.0-47.0); HEMOGLOBIN 12.2 g/dL (12.0-16.0); LYMPHOCYTES # (AUTO) 1.1 X10^3/uL (1.3-2.9); LYMPHOCYTES % (AUTO) 12.3 % (21.0-51.0); MEAN CORPUSCULAR HEMOGLOBIN 26.5 pg (27.0-34.0); MEAN CORPUSCULAR HGB CONC 33.3 g/dL (33.0-35.0); MEAN CORPUSCULAR VOLUME 79.4 fL (80.0-100.0); MONOCYTES # (AUTO) 0.8 x10^3/uL (0.3-0.8); MONOCYTES % (AUTO) 9.2 % (0.0-13.0); NEUTROPHILS # (AUTO) 6.6 x10^3/uL (2.2-4.8); NEUTROPHILS % (AUTO) 76.1 % (42.0-75.0); PLATELET COUNT 321 X10^3/uL (150.0-450.0); RED CELL DISTRIBUTION WIDTH 15.1 % (11.6-16.5); WHITE BLOOD COUNT 8.7 X10^3/uL (3.6-10.0)
[2018-07-31 04:23] LABS: CREATINE KINASE 248 Units/L (26-192)
[2018-07-31 04:24] LABS: CKMB % 1.6 % (<4); TROPONIN I < 0.02 ng/mL (0-1.5)
[2018-07-31 05:03] LABS: ALANINE AMINOTRANSFERASE 23 Units/L (12-78); ALBUMIN 3.6 g/dL (3.4-5.0); ALKALINE PHOSPHATASE 120 Units/L (46-116); ASPARTATE AMINO TRANSFERASE 23 Units/L (15-37); BLOOD UREA NITROGEN 15 mg/dL (7-18); CARBON DIOXIDE 27.2 mmol/L (21-32); CHLORIDE 91 mmol/L (98-107); COR NA(FOR HYPERGLY) 130 mmol/L (136-145); CREATININE 1.04 mg/dL (0.55-1.02); MAGNESIUM 2.4 mg/dL (1.7-2.9); SODIUM 128 mmol/L (136-145); TOTAL PROTEIN 7.3 g/dL (6.4-8.2); eGFR NON BLACK RACES 53 (>60)
[2018-07-31] MEDS: APRESOLINE TAB 25 MG PO SCH ×3 (05:25→21:08)
[2018-07-31] MEDS: HumuLIN R SUBCUT PRN ×4 (05:32→20:20)
[2018-07-31] MEDS ORDERED: TAPAZOLE ONE ×2 (08:16→20:08)
[2018-07-31] MEDS: MICRO K EXTEN CAP 10 MEQ PO PRN (08:32)
[2018-07-31] MEDS: PROTONIX TAB 40 MG PO SCH (08:32)
[2018-07-31] MEDS: LOVENOX INJ 40 MG SYR SC SCH (08:32)
[2018-07-31] MEDS: TAPAZOLE PO SCH ×2 (08:32→20:18)
[2018-07-31] MEDS: AMARYL TAB 4 MG PO SCH ×2 (08:33→20:18)
[2018-07-31] MEDS: CALAN SR 240 MG PO SCH ×2 (08:33→20:19)
[2018-07-31] MEDS: COZAAR PO SCH (08:33)
[2018-07-31] MEDS: TYLENOL 325 MG TAB PO PRN (10:39)
[2018-07-31] MEDS: SNACK - Diabetic Appropriate PO SCH (20:17)
[2018-07-31] MEDS: RESTORIL CAP 15 MG PO PRN (20:19)
[2018-08-01 05:25] LABS: BASOPHILS % (AUTO) 0.6 % (0.2-1.0); EOSINOPHILS # (AUTO) 0.2 x10^3/uL (0.0-0.2); EOSINOPHILS % (AUTO) 2.5 % (0.9-2.9); HEMATOCRIT 32.6 % (36.0-47.0); HEMOGLOBIN 10.9 g/dL (12.0-16.0); LYMPHOCYTES # (AUTO) 0.8 X10^3/uL (1.3-2.9); LYMPHOCYTES % (AUTO) 12.8 % (21.0-51.0); MEAN CORPUSCULAR HEMOGLOBIN 26.3 pg (27.0-34.0); MEAN CORPUSCULAR HGB CONC 33.3 g/dL (33.0-35.0); MEAN CORPUSCULAR VOLUME 79.1 fL (80.0-100.0); MEAN PLATELET VOLUME 7.1 fL (7.4-11.0); MONOCYTES # (AUTO) 0.6 x10^3/uL (0.3-0.8); MONOCYTES % (AUTO) 9.7 % (0.0-13.0); NEUTROPHILS # (AUTO) 4.6 x10^3/uL (2.2-4.8); NEUTROPHILS % (AUTO) 74.4 % (42.0-75.0); PLATELET COUNT 277 X10^3/uL (150.0-450.0); RED BLOOD COUNT 4.12 X10^6/uL (3.5-5.4); RED CELL DISTRIBUTION WIDTH 15.1 % (11.6-16.5); WHITE BLOOD COUNT 6.2 X10^3/uL (3.6-10.0)
[2018-08-01] MEDS: APRESOLINE TAB 25 MG PO SCH ×3 (05:30→21:00)
[2018-08-01] MEDS: HumuLIN R SUBCUT PRN ×3 (05:31→20:59)
[2018-08-01 05:32] LABS: ALANINE AMINOTRANSFERASE 20 Units/L (12-78); ALBUMIN 3.1 g/dL (3.4-5.0); ALKALINE PHOSPHATASE 104 Units/L (46-116); ASPARTATE AMINO TRANSFERASE 19 Units/L (15-37); BLOOD UREA NITROGEN 16 mg/dL (7-18); CARBON DIOXIDE 24.4 mmol/L (21-32); CHLORIDE 92 mmol/L (98-107); COR CA(FOR HYPOALB) 9.7 mg/dL (8.5-10.1); COR NA(FOR HYPERGLY) 128 mmol/L (136-145); CREATININE 0.93 mg/dL (0.55-1.02); SODIUM 126 mmol/L (136-145); TOTAL PROTEIN 6.4 g/dL (6.4-8.2); eGFR NON BLACK RACES > 60 (>60)
[2018-08-01 06:04] LABS: CREATINE KINASE MB 3.9 ng/mL (0-4.0)
[2018-08-01] MEDS ORDERED: TAPAZOLE ONE ×2 (07:12→20:24)
[2018-08-01] MEDS: CALAN SR 240 MG PO SCH ×2 (08:03→20:58)
[2018-08-01] MEDS: PROTONIX TAB 40 MG PO SCH (08:03)
[2018-08-01] MEDS: COZAAR PO SCH (08:03)
[2018-08-01] MEDS: LOVENOX INJ 40 MG SYR SC SCH (08:04)
[2018-08-01] MEDS: AMARYL TAB 4 MG PO SCH ×2 (08:06→20:58)
[2018-08-01] MEDS ORDERED: XANAX PO PRN (11:33)
[2018-08-01] MEDS ORDERED: XANAX ONE (11:38)
[2018-08-01] MEDS: NS 1000 ML 1,000 ML IV SCH (13:07)
[2018-08-01] MEDS: SNACK - Diabetic Appropriate PO SCH (20:46)
[2018-08-01] MEDS: RESTORIL CAP 15 MG PO PRN (20:59)
[2018-08-01] MEDS ORDERED: TAPAZOLE PO SCH (21:00)
[2018-08-02] MEDS: APRESOLINE TAB 25 MG PO SCH (05:44)
[2018-08-02] MEDS: HumuLIN R SUBCUT PRN (05:45)
[2018-08-02 05:55] LABS: BASOPHILS # (AUTO) 0.1 X10^3/uL (0.0-0.1); BASOPHILS % (AUTO) 0.8 % (0.2-1.0); EOSINOPHILS # (AUTO) 0.1 x10^3/uL (0.0-0.2); EOSINOPHILS % (AUTO) 1.7 % (0.9-2.9); HEMATOCRIT 33.2 % (36.0-47.0); LYMPHOCYTES # (AUTO) 0.8 X10^3/uL (1.3-2.9); LYMPHOCYTES % (AUTO) 12.8 % (21.0-51.0); MEAN CORPUSCULAR HEMOGLOBIN 26.8 pg (27.0-34.0); MEAN CORPUSCULAR HGB CONC 33.1 g/dL (33.0-35.0); MEAN CORPUSCULAR VOLUME 80.7 fL (80.0-100.0); MEAN PLATELET VOLUME 7.6 fL (7.4-11.0); MONOCYTES # (AUTO) 0.6 x10^3/uL (0.3-0.8); MONOCYTES % (AUTO) 9.9 % (0.0-13.0); NEUTROPHILS # (AUTO) 4.9 x10^3/uL (2.2-4.8); NEUTROPHILS % (AUTO) 74.8 % (42.0-75.0); PLATELET COUNT 310 X10^3/uL (150.0-450.0); RED BLOOD COUNT 4.11 X10^6/uL (3.5-5.4); RED CELL DISTRIBUTION WIDTH 15.4 % (11.6-16.5); WHITE BLOOD COUNT 6.5 X10^3/uL (3.6-10.0)
[2018-08-02 06:05] LABS: ALANINE AMINOTRANSFERASE 20 Units/L (12-78); ALKALINE PHOSPHATASE 100 Units/L (46-116); ASPARTATE AMINO TRANSFERASE 20 Units/L (15-37); BLOOD UREA NITROGEN 18 mg/dL (7-18); CALCIUM 8.9 mg/dL (8.5-10.1); CARBON DIOXIDE 25.6 mmol/L (21-32); CHLORIDE 95 mmol/L (98-107); COR CA(FOR HYPOALB) 9.7 mg/dL (8.5-10.1); COR NA(FOR HYPERGLY) 129 mmol/L (136-145); SODIUM 128 mmol/L (136-145); TOTAL PROTEIN 6.5 g/dL (6.4-8.2); eGFR NON BLACK RACES 56 (>60)
[2018-08-02] MEDS: AMARYL TAB 4 MG PO SCH (08:05)
[2018-08-02] MEDS: COZAAR PO SCH (08:05)
[2018-08-02] MEDS: PROTONIX TAB 40 MG PO SCH (08:05)
[2018-08-02] MEDS: LOVENOX INJ 40 MG SYR SC SCH (08:06)
[2018-08-02] MEDS: CALAN SR 240 MG PO SCH (08:18)
[2018-08-02 10:29] VITALS: BP 165/74
== END 2018-08-02 12:20 | disposition home or self-care (01) | DRG 305 ==
LOC: ER 23:43 → ICU 07-30 02:52
PROVIDERS: ADMIT Obstetrics & Gynecology Obstetrics; ATTEND Internal Medicine
DX: R07.89 Other chest pain; I16.0 Hypertensive urgency; R94.31 Abnormal electrocardiogram [ECG] [EKG]; R26.89 Other abnormalities of gait and mobility; R07.2 Precordial pain; E11.65 Type 2 diabetes mellitus with hyperglycemia; E87.1 Hypo-osmolality and hyponatremia; Z23 Encounter for immunization; K21.9 Gastro-esophageal reflux disease without esophagitis
CPT/HCPCS: 36415; 70486; 71010; 71045; 80053; 80061; 81001; 82550; 82553; 83735; 84132; 84484; 85025; 93005; 96365; 96374; 97162; 99284; A4216; A4222; 90670; J1650; J1815; J2405; J3475; J3490; J7030